=== PATIENT | female | born 2000 | race Two or more races ===

== ENCOUNTER 2022-07-27 00:02 | Inpatient (IN) | payer BC, OTHER ==
[2022-07-27] MEDS ORDERED: IPRATROPIUM/ALBUTEROL 3 ML NEB INH STA (00:16)
[2022-07-27] MEDS ORDERED: ALBUTEROL NEB 2.5 MG/3 ML INH STA ×3 (00:16→05:40)
[2022-07-27] MEDS ORDERED: ALBUTEROL NEB 2.5 MG/3 ML INH ONE (00:29)
--- NOTE | 2022-07-27 00:34 | ED Physician Documentation ---
PD HPI DYSPNEA - Stated complaint Stated Complaint: ASTHMA ATTACK - Chief complaint Chief Complaint: Resp - History obtained from History obtained from: Patient - History of Present Illness Timing - onset: How many days ago (3-4) Timing - details: Gradual onset, Waxing and waning Improved by: Inhaler/neb, Rest Worsened by: Exertion Associated symptoms: Cough, Wheezing, Chest pain / discomfort. No: Fever, Hemoptysis, Palpitations, Diaphoresis, Bilateral edema, Unilateral edema Similar symptoms before: Diagnosis (asthma) Recently seen: Not recently seen - Additional information Additional information: c/o 3-4 days of chest tightness, dyspnea, wheezing, dry cough; symptoms are c/w her asthma (per patient). She was T+R from another ED 07/25/22 for same symptoms [facility] in [place], [place]), given several neb treatments as well as solu-medrol and IV magnesium with adequate improvement for discharge. She presents to [facility] ED at this time due to worsening of the symptoms.She is COVID vaccinated. Denies fever. She is only able to speak in 1-2 word (abbreviated) sentences during HPI/ROS, with friend answering many questions due to patient's dyspnea. Had airplane flight from [place] approximately 1 month ago. Has not noticed any leg swelling Review of Systems Constitutional: denies: Fever, Chills, Sweats Throat: reports: Reviewed and negative Cardiac: reports: Chest pain / pressure (tightness). denies: Palpitations, Pedal edema, Calf pain Respiratory: reports: Dyspnea, Cough, Wheezing. denies: Hemoptysis GI: reports: Reviewed and negative : denies: Now EGA Musculoskeletal: reports: Reviewed and negative PD PAST MEDICAL HISTORY - Past Medical History Past Medical History: Yes Respiratory: Asthma - Present Medications Home Medications: Ambulatory Orders Medication Instructions Recorded Confirmed Albuterol Sulfate [Proair Hfa 1 - 2 puffs INH PRN PRN 07/27/22 07/27/22 Inhaler] Tiotropium [place] [Spiriva] 1 puffs INH DAILY 07/27/22 07/27/22 predniSONE [Prednisone] 20 mg PO DAILY 07/27/22 07/27/22 - Allergies Allergies/Adverse Reactions: Allergies Allergy/AdvReac Type Severity Reaction Status Date / Time egg AdvReac Anaphylaxis Verified 07/27/22 00:56 PD ED PE NORMAL - Vitals Vital signs reviewed: Yes - General General: Alert and oriented X 3, Well developed/nourished, Other (obvious respiratory distress, using accessory muscles and tachypneic) - HEENT HEENT: Moist mucous membranes - Neck Neck: Supple, no meningeal sign - Cardiac Cardiac: No murmur - Derm Derm: Normal color, Warm and dry - Extremities Extremities: No edema PD ED PE EXPANDED - Cardiac Cardiac: Tachy, Regular Rhythm - Respiratory Respiratory: Distress, Accessory mm use, Wheezing, Decreased breath sounds (nearly absent breath sounds , but subsequent to first breathing treatment there are diffuse inspiratory/expiratory wheezes) Results - Vitals Vitals: Vital Signs - 24 hr 07/27/22 07/27/22 07/27/22 00:10 00:50 01:14 Temperature 37.1 C Heart Rate 149 H 129 H 129 H Respiratory 24 38 H Rate Blood Pressure 130/109 H 143/85 H O2 Saturation 91 L 100 07/27/22 07/27/22 07/27/22 01:32 01:38 02:16 Temperature Heart Rate 140 H 128 H 113 H Respiratory 38 H 24 19 Rate Blood Pressure 116/68 O2 Saturation 100 99 07/27/22 07/27/22 07/27/22 03:05 04:05 05:05 Temperature Heart Rate 115 H 116 H 99 Respiratory 20 20 17 Rate Blood Pressure 100/68 108/73 O2 Saturation 100 99 07/27/22 07/27/22 07/27/22 05:10 06:04 06:20 Temperature Heart Rate 95 99 96 Respiratory 17 18 20 Rate Blood Pressure 108/73 O2 Saturation 99 100 07/27/22 07/27/22 07:00 07:43 Temperature Heart Rate 122 H 111 H Respiratory 18 16 Rate Blood Pressure 108/75 O2 Saturation 96 88 L Oxygen O2 Source Room air - Labs Labs: Laboratory Tests 07/27/22 07/27/22 00:57 00:57 WBC 16.2 H RBC 5.15 Hgb 15.7 Hct 44.5 MCV 86.4 MCH 30.5 MCHC 35.3 RDW 11.9 L Plt Count 209 MPV 9.6 Neut # (Auto) 14.3 H Lymph # (Auto) 0.8 L Screven # (Auto) 1.1 H Eos # (Auto) 0.0 Baso # (Auto) 0.0 Absolute Nucleated RBC 0.00 Nucleated RBC % 0.0 Sodium 138 Potassium 4.0 Chloride 103 Carbon Dioxide 23 Anion Gap 12.0 BUN 20 Creatinine 0.7 Estimated GFR (MDRD) 107 Glucose 130 H Calcium 9.3 - Rads (name of study) chest xray Radiology: Prelim report reviewed, See rad report PD MEDICAL DECISION MAKING - ED course Complexity details: reviewed old records (requested records from [facility] ED visit, received and reviewed by me), reviewed results, re-evaluated patient, considered differential, d/w patient ED course: Given duoneb followed by two albuterol nebs , and later in stay a third albuterol neb (total of four nebs). She is also given 2grams magnesium sulfate IV early in stay along with 125mg IV solu-medrol and started on bipap. She improved significantly with these measures, particularly the bipap. However, she continued to require 2-3 liters/min supplemental oxygen due to hypoxia (drops to 88% room air reliably when oxygen removed). She is tachycardic throughout most of ED stay, 100s-110s, even when asleep. This is likely due to the neb treatments, but given recent airplane flight and c/o chest pain, a CTA chest was undertaken; this does not show any PE, but reveals ground-glass opacities bilaterally. Due to ongoing hypoxia (below 90% pulse ox on room air), will admit for further observation and treatment Departure - Departure Disposition: ED Place in Observation Clinical Impression: Asthma Qualifiers: Asthma severity: moderate Asthma persistence: unspecified Asthma complication type: with acute exacerbation Qualified Code(s): J45.901 - Unspecified asthma with (acute) exacerbation Condition: Stable
[2022-07-27] MEDS ORDERED: MAGNESIUM SULFATE 2 GRAM 2 GM/50 ML BAG IV STA (00:42)
[2022-07-27] MEDS ORDERED: SODIUM CHLORIDE 0.9% 1,000 ML IV STA (00:50)
[2022-07-27 01:03] LABS: BASOPHILS % (AUTO) 0.1 %; HCT - HEMATOCRIT 44.5 % (37.0-47.0); HGB - HEMOGLOBIN 15.7 g/dL (12.0-16.0); LYMPHOCYTES # (AUTO) 0.8 10^3/uL (1.5-3.5); LYMPHOCYTES % (AUTO) 4.8 %; MEAN CORPUSCULAR HEMOGLOBIN 30.5 pg (27.0-31.0); MEAN CORPUSCULAR HGB CONC 35.3 g/dL (32.0-36.0); MEAN CORPUSCULAR VOLUME 86.4 fL (81.0-99.0); MEAN PLATELET VOLUME 9.6 fL (7.9-10.8); MONOCYTES # (AUTO) 1.1 10^3/uL (0.0-1.0); MONOCYTES % (AUTO) 6.5 %; NEUTROPHILS # (AUTO) 14.3 10^3/uL (1.5-6.6); NEUTROPHILS % (AUTO) 88.2 %; PLT - PLATELET COUNT 209 10^3/uL (130-450); RED BLOOD COUNT 5.15 10^6/uL (4.20-5.40); RED CELL DISTRIBUTION WIDTH 11.9 % (12.0-15.0); WHITE BLOOD COUNT 16.2 x10^3/uL (4.8-10.8)
[2022-07-27 01:13] LABS: CALCIUM 9.3 mg/dL (8.5-10.3); CREATININE 0.7 mg/dL (0.4-1.0)
[2022-07-27] MEDS ORDERED: methylPREDNISolone SUCCINATE 125 MG/2 ML VIAL IVP STA (02:10)
--- NOTE | 2022-07-27 07:28 | XRAY Report ---
PROCEDURE: Chest 2 View X-Ray INDICATIONS: cough, dyspnea TECHNIQUE: 2 view(s) of the chest. COMPARISON: None. FINDINGS: Surgical changes and devices: None. Lungs and pleura: No pleural effusions or pneumothorax. Lungs are clear. Mediastinum: Mediastinal contours are normal. Heart size is normal. Bones and chest wall: No suspicious bony abnormalities. Soft tissues appear unremarkable. IMPRESSION: No acute pulmonary process. Reviewed by: Rufina Salmeron MD on 07/27/2022 7:27 AM PDT Approved by: Rufina Salmeron MD on 07/27/2022 7:27 AM PDT Station ID: [id number]
--- NOTE | 2022-07-27 08:14 | CT Report ---
PROCEDURE: ANGIO CHEST W/WO INDICATIONS: chest pain, dyspnea, tachycardia CONTRAST: IV CONTRAST: Optiray 320 ml: 80 PO CONTRAST: *NO PO CONTRAST TECHNIQUE: After the administration of intravenous contrast, 2 mm axial images were acquired from the pulmonary apices to the posterior costophrenic angles during the arterial phase. In addition, 1 mm lung kernel and 5 mm soft tissue kernel reconstructions were performed. 3-dimensional coronal oblique maximum int ensity projection (MIP) reformats, 8 mm axial MIP, and 5 mm coronal and sagittal MPR reformats were t hen performed through the thorax. For radiation dose reduction, the following was used: automated exp osure control, adjustment of mA and/or kV according to patient size. COMPARISON: Chest x-ray 07/27/2022 FINDINGS: Image quality: Excellent. Pulmonary arteries: Pulmonary arteries are normal in size, and demonstrate no intraluminal filling d efects to suggest central pulmonary embolism. Lungs and pleura: Patchy areas of groundglass like opacity are identified in the anterior aspect of t he upper lobes. No pleural effusions or pneumothorax. Central and peripheral airways are patent. Mediastinum: Heart size is normal, without pericardial effusion. No mediastinal or hilar adenopathy . Thoracic aorta is normal in caliber and enhancement. Esophagus is normal in caliber, without hiat al hernia. Bones and chest wall: No suspicious bony lesions. Ribs and thoracic spine appear intact throughout. No axillary or supraclavicular adenopathy. The thyroid is normal in size and there are no incident al findings. Abdomen: Visualized upper abdominal solid organs appear normal in the early arterial phase of enhanc ement. IMPRESSION: No pulmonary embolism. Groundglass opacities within the upper lobes suggestive of infection or inflammation. The above findings are concordant with preliminary report. CLINICAL RECOMMENDATION STATEMENTS: In patients <35 years with an ITN detected on CT, MRI, or extrathyroidal ultrasound, the Committee re commends further evaluation with dedicated thyroid ultrasound if the nodule is "e1 cm and has no susp icious imaging features, and if the patient has normal life expectancy. In patients "e35 years with an ITN detected on CT, MRI, or extrathyroidal ultrasound, the Committee r ecommends further evaluation with dedicated thyroid ultrasound if the nodule is "e1.5 cm and has no s uspicious imaging features, and if the patient has normal life expectancy. (ACR, 2014) Reviewed by: Rufina Salmeron MD on 07/27/2022 8:13 AM PDT Approved by: Rufina Salmeron MD on 07/27/2022 8:13 AM PDT Station ID: [id number]
[2022-07-27 08:56] LABS: B. PARAPERTUSSIS- RESP PCR PAN NOT DETECTED; B. PERTUSSIS- RESP PCR PANEL NOT DETECTED; C. PNEUMONIAE- RESP PCR PANEL NOT DETECTED; CORONAVIRUS 229E-RESP PCR NOT DETECTED; CORONAVIRUS HKU1-RESP PCR NOT DETECTED; CORONAVIRUS NL63-RESP PCR NOT DETECTED; CORONAVIRUS OC43-RESP PCR NOT DETECTED; HUMAN METAPNEUMOVIRUS NOT DETECTED; INFLUENZA A- RESP PCR PANEL NOT DETECTED; INFLUENZA B - RESP PCR PANEL NOT DETECTED; M. PNEUMONIAE- RESP PCR PANEL NOT DETECTED; PARAINFLUENZA VIRUS 1 NOT DETECTED; PARAINFLUENZA VIRUS 2 NOT DETECTED; PARAINFLUENZA VIRUS 3 NOT DETECTED; PARAINFLUENZA VIRUS 4 NOT DETECTED; RHINOVIRUS/ENTEROVIRUS NOT DETECTED; RSV- RESP PCR PANEL NOT DETECTED; SARS-CoV-2 -RESP PCR PANEL NOT DETECTED
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
[2022-07-27] MEDS: IPRATROPIUM/ALBUTEROL 3 ML NEB INH SCH ×3 (11:14→20:29)
[2022-07-27] MEDS: BUDESONIDE 0.5 MG/2 ML NEB INH SCH ×2 (11:14→20:29)
[2022-07-27] MEDS: methylPREDNISolone SUCCINATE 40 MG/ML VIAL IVP SCH ×2 (14:10→22:05)
[2022-07-27] MEDS: SODIUM CHLORIDE FLUSH 0.9% 10 ML SYRINGE IVP PRN (14:10)
--- NOTE | 2022-07-27 14:28 | PHARMACY PROGRESS NOTE ---
- Best Possible Medication History Admit Date and Time: 07/27/22 0910 Processed by: Pharmacy Medication History completed: Yes Patient Interview: Completed Secondary Source(s): Prescription bottles (INTERVIEWED PATIENT AND FRIEND; PT REPORTED TAKING ALBUTEROL INHALER AND NEBULIZER SIGNIFICANTLY MORE THAN PRESCRIBED (SEE ADDENDUM)) As the person ultimately responsible for medication therapy, providers are able to order a medication from an existing home medication list in [facility] via the "Reconcile Routine" prior to Confirmation of that medication by shipping support. Such practice is discouraged except when the physician, in their clinical j udgment, deems that a medical need exists for a medication without regard to previous use.
[2022-07-27] MEDS: SODIUM CHLORIDE FLUSH 0.9% 10 ML SYRINGE IVP SCH (17:21)
[2022-07-27] MEDS: cefTRIAXone 1 GM in SODIUM CHLORIDE 0.9% MINIBAG 100 ML IV SCH (18:44)
[2022-07-27] MEDS: AZITHROMYCIN INJ 500 MG in SODIUM CHLORIDE 0.9% 250 ML IV SCH (19:28)
[2022-07-27] MEDS: guaiFENesin 600 MG TABLET PO SCH (22:05)
[2022-07-27] MEDS: ONDANSETRON 4 MG/2 ML VIAL IVP PRN (22:05)
[2022-07-28] MEDS: SODIUM CHLORIDE FLUSH 0.9% 10 ML SYRINGE IVP SCH ×3 (01:03→17:46)
[2022-07-28] MEDS: IPRATROPIUM/ALBUTEROL 3 ML NEB INH PRN ×2 (01:20→05:13)
[2022-07-28 04:54] LABS: BASOPHILS % (AUTO) 0.1 %; HCT - HEMATOCRIT 43.1 % (37.0-47.0); HGB - HEMOGLOBIN 14.8 g/dL (12.0-16.0); LYMPHOCYTES # (AUTO) 0.7 10^3/uL (1.5-3.5); LYMPHOCYTES % (AUTO) 6.5 %; MEAN CORPUSCULAR HEMOGLOBIN 30.3 pg (27.0-31.0); MEAN CORPUSCULAR HGB CONC 34.3 g/dL (32.0-36.0); MEAN CORPUSCULAR VOLUME 88.3 fL (81.0-99.0); MEAN PLATELET VOLUME 9.8 fL (7.9-10.8); MONOCYTES # (AUTO) 0.5 10^3/uL (0.0-1.0); MONOCYTES % (AUTO) 4.5 %; NEUTROPHILS % (AUTO) 88.5 %; PLT - PLATELET COUNT 203 10^3/uL (130-450); RED BLOOD COUNT 4.88 10^6/uL (4.20-5.40); RED CELL DISTRIBUTION WIDTH 11.9 % (12.0-15.0); WHITE BLOOD COUNT 11.2 x10^3/uL (4.8-10.8)
[2022-07-28 05:07] LABS: CREATININE 0.6 mg/dL (0.4-1.0); MAGNESIUM 2.3 mg/dL (1.7-2.8); PHOSPHORUS 4.3 mg/dL (2.5-4.6); POTASSIUM 4.2 mmol/L (3.5-5.0)
[2022-07-28] MEDS: methylPREDNISolone SUCCINATE 40 MG/ML VIAL IVP SCH ×5 (08:15→21:22)
[2022-07-28] MEDS: SODIUM CHLORIDE FLUSH 0.9% 10 ML SYRINGE IVP PRN (08:19)
[2022-07-28] MEDS: cefTRIAXone 1 GM in SODIUM CHLORIDE 0.9% MINIBAG 100 ML IV SCH (08:23)
[2022-07-28] MEDS: guaiFENesin 600 MG TABLET PO SCH ×2 (08:24→20:21)
[2022-07-28] MEDS: BUDESONIDE 0.5 MG/2 ML NEB INH SCH ×2 (08:47→18:11)
[2022-07-28] MEDS: IPRATROPIUM/ALBUTEROL 3 ML NEB INH SCH ×4 (08:47→18:11)
[2022-07-28] MEDS: AZITHROMYCIN INJ 500 MG in SODIUM CHLORIDE 0.9% 250 ML IV SCH (09:35)
--- NOTE | 2022-07-28 10:42 | PROVIDER PROGRESS NOTE ---
Assessment/Plan - Problem List (1) Acute respiratory failure with hypoxia Assessment/Plan: She has desats when transitioned to try being on room air. Will admit her to Inpt status and continue treat her Asthma exacerbation, the underlying cause of the hypoxia. Will continue with supplemental O2, keeping O2 saturations 90 to 92% minimal. Wean down supplemental O2 when tolerated (2) Asthma exacerbation Assessment/Plan: She was SOB just using arms to brush her teeth in bed this morning. She still need suppl O2 via n.c. We started scheduled nebulizers 4 times daily and as needed nebs ordered every 4 hours prn, using DuoNeb. Will also started Pulmicort nebulizer twice daily. She is on IV steroids using Solu-Medrol 80 mg 3 times daily. Will consider a rapid taper starting 40 mg 3 times daily tomorrow and a Medrol Dosepak at the time of discharge. The patient will need further management with a new PCP since she has just moved here. And she will probably benefit from being followed by a Solar Energy System Installer Helper. It would benefit if she was tested for alpha 1 antitrypsin deficiency given her severe lung history since childhood, which would need outpt work-up. (3) Bronchitis Assessment/Plan: Evidence of inflammation of the lung apeces is seen on CT chest, which was done to R/O PE, which was ruled out. COVID test is negative and she has no infiltrate seen on chest x-ray or CT chest. Since she was describing a wet cough, a sputum sample was obtained and has moderate WBC, no epithelial cells (thus, a good specimen) and has bacteria. Await sputum cx results. We started empiric Zithromax and Ceftiaxone. Will add a probiotic Will add Mucinex for expectoration (4) Epigastric pain Assessment/Plan: Patient reports this is slightly with nausea and feels like she needs to burp. The [id number], who stayed overnight and is in the room, states she suspects it is from finally eating food (today the pt had sausages, oatmeal and some liquids), since the pt has "not been eating at all in the past 3 days from being so short of breath". The patient reports she had this last night after dinner and got IV antiemetics before sleep and it helped her symptoms. Her abdominal exam is completely benign. There is no muscle wall tenderness or pain with sitting forward. Will give prn Mylanta and continue as needed antiemetics. - Current Meds Current Meds: Current Medications Generic Name Dose Route Start Last Admin Trade Name Tu PRN Reason Stop Dose Admin Albuterol/Ipratropium 3 ml 07/27/22 09:15 07/28/22 05:13 Ipratropium/Albuterol 3 Ml Neb INH 3 ml Q4HR PRN Administration Wheezing Albuterol/Ipratropium 3 ml 07/27/22 11:00 07/28/22 08:47 Ipratropium/Albuterol 3 Ml Neb INH 3 ml RTQID FENG Administration Budesonide 0.5 mg 07/27/22 09:15 07/28/22 08:47 Budesonide 0.5 Mg/2 Ml Neb INH 0.5 mg RTBID FENG Administration Guaifenesin 600 mg 07/27/22 21:00 07/28/22 08:24 Guaifenesin 600 Mg Tablet PO 600 mg BID FENG Administration Azithromycin 500 mg/ Sodium 250 mls @ 250 mls/hr 07/27/22 18:03 07/28/22 09:35 Chloride IV 07/30/22 00:01 250 mls/hr DAILY FENG Administration Ceftriaxone Sodium 1 gm/ 100 mls @ 200 mls/hr 07/27/22 18:03 07/28/22 08:23 Sodium Chloride IV 200 mls/hr DAILY FENG Administration Methylprednisolone 80 mg 07/27/22 14:00 07/28/22 08:15 Methylprednisolone Succinate 40 Mg/Ml Vial IVP 07/28/22 22:30 80 mg TID FENG Administration Ondansetron HCl 4 mg 07/27/22 09:10 07/27/22 22:05 Ondansetron 4 Mg/2 Ml Vial IVP 4 mg Q6HR PRN Administration Nausea / Vomiting Sodium Chloride 10 ml 07/27/22 09:10 07/28/22 08:19 Sodium Chloride Flush 0.9% 10 Ml Syringe IVP 10 ml PRN PRN Administration NEEDED PER PROVIDER ORDERS Sodium Chloride 10 ml 07/27/22 17:00 07/28/22 01:15 Sodium Chloride Flush 0.9% 10 Ml Syringe IVP 10 ml 0100,0900,1700 FENG Administration - Lab Result Fish Bone Diagrams: 07/28/22 04:40 07/28/22 04:40 - Additional Planning My Orders: My Active Orders 07/27/22 11:00 Ipratropium/Albuterol [Duoneb] 3 ml INH RTQID 07/27/22 Lunch Regular Diet [DIET] 07/27/22 11:17 Nebulizer [Nebulizer/MDI Tx.] [RC] .qid 07/27/22 14:00 methylPREDNISolone SUCCINATE [SOLU-Medrol (40MG VIAL)] 80 mg IVP TID 07/27/22 16:20 CUL, RESPIRATORY [RM] Stat 07/27/22 17:00 Sodium Chloride Flush 0.9% [Normal Saline Flush 0.9%] 10 ml IVP 0100,0900,1700 07/27/22 18:03 Azithromycin Inj [Zithromax Inj] 500 mg Sodium Chloride 0.9% [Normal Saline 0.9%] 250 ml IV DAILY cefTRIAXone [Rocephin] 1 gm Sodium Chloride 0.9% Minibag [Normal Saline 0.9% Minibag] 100 ml IV DAILY 07/27/22 21:00 guaiFENesin [Mucinex] 600 mg PO BID 07/28/22 10:36 Admit \\ Transfer \\ Status [RC] .ONCE 07/28/22 10:37 Telemetry- [] Q4HR 07/29/22 05:00 BMP - BASIC METABOLIC PANEL [CHEM] DAILYLAB CBC - COMP BLD CT W/AUTO DIFF [HEME] DAILYLAB 07/29/22 06:00 methylPREDNISolone SUCCINATE [SOLU-Medrol (40MG VIAL)] 40 mg IVP TID 07/30/22 05:00 BMP - BASIC METABOLIC PANEL [CHEM] DAILYLAB CBC - COMP BLD CT W/AUTO DIFF [HEME] DAILYLAB Subjective - Subjective Patient Reports: Abdominal Pain, Nausea Nursing Reports: Shortness of Breath Objective Vital Signs: Vital Signs - 24 hr 07/27/22 07/27/22 07/27/22 10:53 11:18 13:26 Temperature 36.9 C 36.8 C Heart Rate 90 Heart Rate [ 117 H 106 H Brachial] Respiratory 20 20 18 Rate Blood Pressure 122/60 107/63 [Left Brachial artery] Blood Pressure [Right Brachial artery] O2 Saturation 98 94 07/27/22 07/27/22 07/27/22 13:31 14:08 15:53 Temperature 37.0 C Heart Rate Heart Rate [ 113 H Brachial] Respiratory 21 24 Rate Blood Pressure [Left Brachial artery] Blood Pressure 117/60 [Right Brachial artery] O2 Saturation 93 93 93 07/27/22 07/27/22 07/28/22 16:00 20:30 01:05 Temperature 36.7 C 37.1 C Heart Rate 80 110 H Heart Rate [ 113 H 92 Brachial] Respiratory 18 20 19 Rate Blood Pressure 121/75 91/64 [Left Brachial artery] Blood Pressure [Right Brachial artery] O2 Saturation 93 94 07/28/22 07/28/22 07/28/22 03:26 04:40 07:55 Temperature 36.5 C 36.4 C L Heart Rate Heart Rate [ 110 H 103 H Brachial] Respiratory 17 20 20 Rate Blood Pressure [Left Brachial artery] Blood Pressure 121/63 119/58 L [Right Brachial artery] O2 Saturation 96 94 94 07/28/22 08:51 Temperature Heart Rate 79 Heart Rate [ Brachial] Respiratory 20 Rate Blood Pressure [Left Brachial artery] Blood Pressure [Right Brachial artery] O2 Saturation Oxygen O2 Source Nasal cannula I&O (Last 24 Hrs): Intake and Output Totals x24h 07/26/22 07/27/22 07/28/22 23:59 23:59 23:59 Intake Total 2300 100 Balance 2300 100 General: Alert, Other (Lethargic, awakens and communicates normally) HEENT: Mucous membr. moist/pink Neck: Supple, No JVD Neuro: Alert, Non Focal Cardiovascular: Regular rate, No murmurs Respiratory: Wheezes (throughout all lung mcghee) Abdomen: Normal bowel sounds, Soft, No tenderness, No masses Extremities: No clubbing, No edema - Results Results: Laboratory Results WBC 11.2 x10^3/uL (4.8-10.8) H 07/28/22 04:40 RBC 4.88 10^6/uL (4.20-5.40) 07/28/22 04:40 Hgb 14.8 g/dL (12.0-16.0) 07/28/22 04:40 Hct 43.1 % (37.0-47.0) 07/28/22 04:40 MCV 88.3 fL (81.0-99.0) 07/28/22 04:40 MCH 30.3 pg (27.0-31.0) 07/28/22 04:40 MCHC 34.3 g/dL (32.0-36.0) 07/28/22 04:40 RDW 11.9 % (12.0-15.0) L 07/28/22 04:40 Plt Count 203 10^3/uL (130-450) 07/28/22 04:40 MPV 9.8 fL (7.9-10.8) 07/28/22 04:40 Neut # (Auto) 10.0 10^3/uL (1.5-6.6) H 07/28/22 04:40 Lymph # (Auto) 0.7 10^3/uL (1.5-3.5) L 07/28/22 04:40 [place] # (Auto) 0.5 10^3/uL (0.0-1.0) 07/28/22 04:40 Eos # (Auto) 0.0 10^3/uL (0.0-0.7) 07/28/22 04:40 Baso # (Auto) 0.0 10^3/uL (0.0-0.1) 07/28/22 04:40 Absolute Nucleated RBC 0.00 x10^3/uL 07/28/22 04:40 Nucleated RBC % 0.0 /100WBC 07/28/22 04:40 Sodium 135 mmol/L (135-145) 07/28/22 04:40 Potassium 4.2 mmol/L (3.5-5.0) 07/28/22 04:40 Chloride 104 mmol/L (101-111) 07/28/22 04:40 Carbon Dioxide 26 mmol/L (21-32) 07/28/22 04:40 Anion Gap 5.0 (6-13) L 07/28/22 04:40 BUN 18 mg/dL (6-20) 07/28/22 04:40 Creatinine 0.6 mg/dL (0.4-1.0) 07/28/22 04:40 Estimated GFR (MDRD) 127 (>89) 07/28/22 04:40 Glucose 145 mg/dL (70-100) H 07/28/22 04:40 Calcium 9.0 mg/dL (8.5-10.3) 07/28/22 04:40 Phosphorus 4.3 mg/dL (2.5-4.6) 07/28/22 04:40 Magnesium 2.3 mg/dL (1.7-2.8) 07/28/22 04:40 Nasal Adenovirus (PCR) NOT DETECTED 07/27/22 07:57 Nasal B. parapertussis DNA (PCR) NOT DETECTED 07/27/22 07:57 Nasal Coronavir 229E PCR NOT DETECTED 07/27/22 07:57 Nasal Coronavir HKU1 PCR NOT DETECTED 07/27/22 07:57 Nasal Coronavir NL63 PCR NOT DETECTED 07/27/22 07:57 Nasal Coronavir OC43 PCR NOT DETECTED 07/27/22 07:57 Nasal Enterovir/Rhinovir PCR NOT DETECTED 07/27/22 07:57 Nasal Influenza B PCR NOT DETECTED 07/27/22 07:57 Nasal Influenza A PCR NOT DETECTED 07/27/22 07:57 Nasal Parainfluen 1 PCR NOT DETECTED 07/27/22 07:57 Nasal Parainfluen 2 PCR NOT DETECTED 07/27/22 07:57 Nasal Parainfluen 3 PCR NOT DETECTED 07/27/22 07:57 Nasal Parainfluen 4 PCR NOT DETECTED 07/27/22 07:57 Nasal RSV (PCR) NOT DETECTED 07/27/22 07:57 Nasal B.pertussis DNA PCR NOT DETECTED 07/27/22 07:57 Nasal C.pneumoniae (PCR) NOT DETECTED 07/27/22 07:57 Joe Human Metapneumo PCR NOT DETECTED 07/27/22 07:57 Nasal M.pneumoniae (PCR) NOT DETECTED 07/27/22 07:57 Nasal SARS-CoV-2 (PCR) NOT DETECTED 07/27/22 07:57
[2022-07-28] MEDS: ONDANSETRON 4 MG/2 ML VIAL IVP PRN (11:05)
[2022-07-28] MEDS: ACETAMINOPHEN 325 MG TABLET PO PRN ×2 (15:46→20:21)
[2022-07-28] MEDS: SACCHAROMYCES BOULARDII 250 MG CAPSULE PO SCH (17:46)
[2022-07-29 05:03] LABS: HCT - HEMATOCRIT 42.8 % (37.0-47.0); HGB - HEMOGLOBIN 14.8 g/dL (12.0-16.0); LYMPHOCYTES # (AUTO) 0.7 10^3/uL (1.5-3.5); LYMPHOCYTES % (AUTO) 9.5 %; MEAN CORPUSCULAR HEMOGLOBIN 30.6 pg (27.0-31.0); MEAN CORPUSCULAR HGB CONC 34.6 g/dL (32.0-36.0); MEAN CORPUSCULAR VOLUME 88.6 fL (81.0-99.0); MEAN PLATELET VOLUME 9.4 fL (7.9-10.8); MONOCYTES # (AUTO) 0.3 10^3/uL (0.0-1.0); MONOCYTES % (AUTO) 4.7 %; NEUTROPHILS % (AUTO) 85.5 %; PLT - PLATELET COUNT 204 10^3/uL (130-450); RED BLOOD COUNT 4.83 10^6/uL (4.20-5.40); RED CELL DISTRIBUTION WIDTH 11.7 % (12.0-15.0); WHITE BLOOD COUNT 7.1 x10^3/uL (4.8-10.8)
[2022-07-29 05:18] LABS: CALCIUM 9.5 mg/dL (8.5-10.3); CREATININE 0.7 mg/dL (0.4-1.0); POTASSIUM 4.3 mmol/L (3.5-5.0)
[2022-07-29] MEDS: ACETAMINOPHEN 325 MG TABLET PO PRN ×2 (05:51→11:39)
[2022-07-29] MEDS: SODIUM CHLORIDE FLUSH 0.9% 10 ML SYRINGE IVP SCH ×3 (05:52→15:57)
[2022-07-29] MEDS: methylPREDNISolone SUCCINATE 40 MG/ML VIAL IVP SCH ×3 (05:52→21:00)
[2022-07-29] MEDS: IPRATROPIUM/ALBUTEROL 3 ML NEB INH SCH (07:26)
[2022-07-29] MEDS: BUDESONIDE 0.5 MG/2 ML NEB INH SCH ×2 (07:26→20:50)
[2022-07-29] MEDS: guaiFENesin 600 MG TABLET PO SCH ×2 (08:12→21:00)
[2022-07-29] MEDS: SACCHAROMYCES BOULARDII 250 MG CAPSULE PO SCH ×2 (08:12→16:01)
[2022-07-29] MEDS: cefTRIAXone 1 GM in SODIUM CHLORIDE 0.9% MINIBAG 100 ML IV SCH (08:12)
[2022-07-29] MEDS: AZITHROMYCIN INJ 500 MG in SODIUM CHLORIDE 0.9% 250 ML IV SCH (09:27)
[2022-07-29] MEDS ORDERED: SODIUM CHLORIDE 0.9% 500 ML IV ONE (10:18)
[2022-07-29 11:35] LABS: HCG,QUALITATIVE BLOOD NEGATIVE
[2022-07-29] MEDS: MAG HYDROX/AL HYDROX/SIMETH 30 ML UDC PO PRN ×2 (11:40→22:25)
[2022-07-29] MEDS: IPRATROPIUM/ALBUTEROL 3 ML NEB INH PRN (11:46)
[2022-07-29] MEDS ORDERED: SODIUM CHLORIDE 0.9% 1,000 ML IV SCH (12:00)
--- NOTE | 2022-07-29 13:01 | PROVIDER PROGRESS NOTE ---
Assessment/Plan - Problem List (1) Acute respiratory failure with hypoxia Assessment/Plan: She still has desats when transitioned to try being on room air. Will continue treat her Asthma exacerbation, the underlying cause of the hypoxia. Will continue with supplemental O2, keeping O2 saturations 90 to 92% minimal. Wean down supplemental O2 when tolerated. She may require home O2 order. A walking oximetry test would be done on the day of discharge (2) Asthma exacerbation Assessment/Plan: She was able to take a shower, but was SOB and still needing suppl O2 via n.c. We started scheduled nebulizers 4 times daily and as needed nebs ordered every 4 hours prn Will also started Pulmicort nebulizer twice daily. She is on IV steroids using Solu-Medrol 80 mg iv 3 times daily>> 40 mg iv 3 times daily and a Medrol Dosepak is planned at the time of discharge. The patient will need further management with a new PCP since she has just moved here. And she will probably benefit from being followed by a Wave Guide Assembler. It would benefit if she was tested for alpha 1 antitrypsin deficiency, given her severe lung history since childhood, which would need outpt work-up. This was discussed with the patient today, with the brother and [id number] were in the room. 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 This was also discussed with the patient and she became tearful. (3) Bronchitis Assessment/Plan: Evidence of inflammation of the lung apeces is seen on CT chest, which was done to R/O PE, which was ruled out. COVID test is negative and she has no infiltrate seen on chest x-ray or CT chest. Since she was describing a wet cough, a sputum sample was obtained and has moderate WBC, no epithelial cells (thus, a good specimen) and is growing a gram- pos bacteria. Await sputum cx results. We started empiric Zithromax and Ceftiaxone and a probiotic plus Mucinex for expectoration. She is requesting a multivitamin, will order. Will also check a vitamin D level before prescribing a vitamin D replacement. (4) Tachycardia Assessment/Plan: She has had multiple episodes of HR rising to 130-140's over the last 2 days, when she coughs or after a Duoneb treatment. Will change the scheduled qid Duoneb to Xopenex Will give a bolus of saline 500cc, since her intake has been minimal and she may be dry Will give 1L of saline over a day. Continue telemetry. (5) Epigastric pain Assessment/Plan: Her abdominal exam is benign. There is no muscle wall tenderness or pain with sitting forward. There is no tenderness to deep palpation. The patient admitted to her RN that she had unprotected sex about a month ago and today she is 2 days late with her period. A serum hCG was run today and is negative. Patient reports this is slightly with nausea and feels like she needs to burrp. She got IV antiemetics x2 and it helped her symptoms. She also has prn meds for indigestion ordered. I suspect this may be discomfort from constipation, because she has had no BM since admission. - Current Meds Current Meds: Current Medications Generic Name Dose Route Start Last Admin Trade Name Tu PRN Reason Stop Dose Admin Acetaminophen 650 mg 07/27/22 09:10 07/29/22 11:39 Acetaminophen 325 Mg Tablet PO 650 mg Q4HR PRN Administration Pain 1 to 4, or Fever Al Hydroxide/Mg Hydroxide 30 ml 07/28/22 10:48 07/29/22 11:40 Mag Hydrox/Al Hydrox/Simeth 30 Ml Udc PO 30 ml Q4HR PRN Administration INDIGESTION Albuterol/Ipratropium 3 ml 07/27/22 09:15 07/29/22 11:46 Ipratropium/Albuterol 3 Ml Neb INH 3 ml Q4HR PRN Administration Wheezing Budesonide 0.5 mg 07/27/22 09:15 07/29/22 07:26 Budesonide 0.5 Mg/2 Ml Neb INH 0.5 mg RTBID FENG Administration Guaifenesin 600 mg 07/27/22 21:00 07/29/22 08:12 Guaifenesin 600 Mg Tablet PO 600 mg BID FENG Administration Azithromycin 500 mg/ Sodium 250 mls @ 250 mls/hr 07/27/22 18:03 07/29/22 10:40 Chloride IV 07/30/22 00:01 Infused DAILY FENG Infusion Ceftriaxone Sodium 1 gm/ 100 mls @ 200 mls/hr 07/27/22 18:03 07/29/22 08:50 Sodium Chloride IV Infused DAILY FENG Infusion Sodium Chloride 1,000 mls @ 60 mls/hr 07/29/22 12:00 07/29/22 11:35 Normal Saline 0.9% IV 07/30/22 04:39 60 mls/hr .[id number] FENG Administration Methylprednisolone 40 mg 07/29/22 06:00 07/29/22 05:52 Methylprednisolone Succinate 40 Mg/Ml Vial IVP 40 mg TID FENG Administration Ondansetron HCl 4 mg 07/27/22 09:10 07/28/22 11:05 Ondansetron 4 Mg/2 Ml Vial IVP 4 mg Q6HR PRN Administration Nausea / Vomiting Saccharomyces Boulardii 250 mg 07/28/22 17:00 07/29/22 08:12 Saccharomyces Boulardii 250 Mg Capsule PO 250 mg BIDWM FENG Administration Sodium Chloride 10 ml 07/27/22 09:10 07/28/22 08:19 Sodium Chloride Flush 0.9% 10 Ml Syringe IVP 10 ml PRN PRN Administration NEEDED PER PROVIDER ORDERS Sodium Chloride 10 ml 07/27/22 17:00 07/29/22 08:13 Sodium Chloride Flush 0.9% 10 Ml Syringe IVP 10 ml 0100,0900,1700 FENG Administration - Lab Result Fish Bone Diagrams: 07/29/22 04:55 07/29/22 04:55 - Additional Planning My Orders: My Active Orders 07/28/22 17:00 Saccharomyces Boulardii [Florastor] 250 mg PO BIDWM 07/29/22 06:00 methylPREDNISolone SUCCINATE [SOLU-Medrol (40MG VIAL)] 40 mg IVP TID 07/29/22 10:19 Resp Teach Nebulizer/MDI [RC] .ONCE 07/29/22 12:00 Sodium Chloride 0.9% [Normal Saline 0.9%] 1,000 ml IV 60 mls/hr 07/29/22 13:00 Levalbuterol [Xopenex] 1.25 mg INH QID 07/30/22 05:00 BMP - BASIC METABOLIC PANEL [CHEM] DAILYLAB CBC - COMP BLD CT W/AUTO DIFF [HEME] DAILYLAB VITAMIN D 25-HYDROXY [REFLAB] Routine Subjective - Subjective Patient Reports: Other (Able to take a shower yesterday and today, but was SOB. Able to speak in long sentences today.) Objective Vital Signs: Vital Signs - 24 hr 07/28/22 07/28/22 07/28/22 14:16 15:14 15:54 Temperature 36.9 C Heart Rate 89 Heart Rate [ 117 H Brachial] Heart Rate [ Monitoring electrodes] Respiratory 20 20 Rate Blood Pressure [Left Brachial artery] Blood Pressure 103/53 L [Right Brachial artery] O2 Saturation 94 95 07/28/22 07/28/22 07/28/22 18:13 20:06 21:02 Temperature 36.5 C Heart Rate 89 Heart Rate [ 110 H Brachial] Heart Rate [ 98 Monitoring electrodes] Respiratory 19 16 Rate Blood Pressure [Left Brachial artery] Blood Pressure 120/75 [Right Brachial artery] O2 Saturation 95 07/29/22 07/29/22 07/29/22 00:34 05:25 07:18 Temperature 37.1 C 36.7 C 37.3 C Heart Rate Heart Rate [ 104 H 101 H 84 Brachial] Heart Rate [ Monitoring electrodes] Respiratory 18 16 16 Rate Blood Pressure 111/61 119/74 [Left Brachial artery] Blood Pressure 117/69 [Right Brachial artery] O2 Saturation 93 94 93 07/29/22 07/29/22 07/29/22 07:28 09:45 11:48 Temperature Heart Rate 105 H 89 Heart Rate [ Brachial] Heart Rate [ Monitoring electrodes] Respiratory 20 20 18 Rate Blood Pressure [Left Brachial artery] Blood Pressure [Right Brachial artery] O2 Saturation 93 07/29/22 12:48 Temperature 36.8 C Heart Rate Heart Rate [ 92 Brachial] Heart Rate [ Monitoring electrodes] Respiratory 17 Rate Blood Pressure 109/71 [Left Brachial artery] Blood Pressure [Right Brachial artery] O2 Saturation 96 Oxygen O2 Source Nasal cannula I&O (Last 24 Hrs): Intake and Output Totals x24h 07/27/22 07/28/22 07/29/22 23:59 23:59 23:59 Intake Total 2300 1125 1610 Output Total 725 680 Balance 2300 400 930 General: Alert, Oriented x3 HEENT: Mucous membr. moist/pink, Other (wearing O2 per n.c.) Neck: Supple, No JVD Neuro: Alert, Non Focal Cardiovascular: Regular rate, No murmurs Respiratory: Wheezes (Rare wheezing, stioll prolonged expir phase) Abdomen: Normal bowel sounds, Soft, No tenderness, No masses Extremities: No clubbing, No edema - Results Results: Laboratory Results WBC 7.1 x10^3/uL (4.8-10.8) 07/29/22 04:55 RBC 4.83 10^6/uL (4.20-5.40) 07/29/22 04:55 Hgb 14.8 g/dL (12.0-16.0) 07/29/22 04:55 Hct 42.8 % (37.0-47.0) 07/29/22 04:55 MCV 88.6 fL (81.0-99.0) 07/29/22 04:55 MCH 30.6 pg (27.0-31.0) 07/29/22 04:55 MCHC 34.6 g/dL (32.0-36.0) 07/29/22 04:55 RDW 11.7 % (12.0-15.0) L 07/29/22 04:55 Plt Count 204 10^3/uL (130-450) 07/29/22 04:55 MPV 9.4 fL (7.9-10.8) 07/29/22 04:55 Neut # (Auto) 6.0 10^3/uL (1.5-6.6) 07/29/22 04:55 Lymph # (Auto) 0.7 10^3/uL (1.5-3.5) L 07/29/22 04:55 [place] # (Auto) 0.3 10^3/uL (0.0-1.0) 07/29/22 04:55 Eos # (Auto) 0.0 10^3/uL (0.0-0.7) 07/29/22 04:55 Baso # (Auto) 0.0 10^3/uL (0.0-0.1) 07/29/22 04:55 Absolute Nucleated RBC 0.00 x10^3/uL 07/29/22 04:55 Nucleated RBC % 0.0 /100WBC 07/29/22 04:55 Sodium 139 mmol/L (135-145) 07/29/22 04:55 Potassium 4.3 mmol/L (3.5-5.0) 07/29/22 04:55 Chloride 101 mmol/L (101-111) 07/29/22 04:55 Carbon Dioxide 27 mmol/L (21-32) 07/29/22 04:55 Anion Gap 11.0 (6-13) 07/29/22 04:55 BUN 18 mg/dL (6-20) 07/29/22 04:55 Creatinine 0.7 mg/dL (0.4-1.0) 07/29/22 04:55 Estimated GFR (MDRD) 107 (>89) 07/29/22 04:55 Glucose 140 mg/dL (70-100) H 07/29/22 04:55 Calcium 9.5 mg/dL (8.5-10.3) 07/29/22 04:55 Phosphorus 4.3 mg/dL (2.5-4.6) 07/28/22 04:40 Magnesium 2.3 mg/dL (1.7-2.8) 07/28/22 04:40 Serum HCG, Qual NEGATIVE 07/29/22 04:55 Nasal Adenovirus (PCR) NOT DETECTED 07/27/22 07:57 Nasal B. parapertussis DNA (PCR) NOT DETECTED 07/27/22 07:57 Nasal Coronavir 229E PCR NOT DETECTED 07/27/22 07:57 Nasal Coronavir HKU1 PCR NOT DETECTED 07/27/22 07:57 Nasal Coronavir NL63 PCR NOT DETECTED 07/27/22 07:57 Nasal Coronavir OC43 PCR NOT DETECTED 07/27/22 07:57 Nasal Enterovir/Rhinovir PCR NOT DETECTED 07/27/22 07:57 Nasal Influenza B PCR NOT DETECTED 07/27/22 07:57 Nasal Influenza A PCR NOT DETECTED 07/27/22 07:57 Nasal Parainfluen 1 PCR NOT DETECTED 07/27/22 07:57 Nasal Parainfluen 2 PCR NOT DETECTED 07/27/22 07:57 Nasal Parainfluen 3 PCR NOT DETECTED 07/27/22 07:57 Nasal Parainfluen 4 PCR NOT DETECTED 07/27/22 07:57 Nasal RSV (PCR) NOT DETECTED 07/27/22 07:57 Nasal B.pertussis DNA PCR NOT DETECTED 07/27/22 07:57 Nasal C.pneumoniae (PCR) NOT DETECTED 07/27/22 07:57 Joe Human Metapneumo PCR NOT DETECTED 07/27/22 07:57 Nasal M.pneumoniae (PCR) NOT DETECTED 07/27/22 07:57 Nasal SARS-CoV-2 (PCR) NOT DETECTED 07/27/22 07:57
[2022-07-29] MEDS: LEVALBUTEROL 1.25 MG/3 ML NEB INH SCH ×3 (15:50→20:50)
[2022-07-29] MEDS: PRENATAL VITAMIN TABLET PO SCH (17:24)
[2022-07-30] MEDS: SODIUM CHLORIDE FLUSH 0.9% 10 ML SYRINGE IVP SCH ×2 (00:09→08:15)
[2022-07-30] MEDS: methylPREDNISolone SUCCINATE 40 MG/ML VIAL IVP SCH ×2 (06:00→14:24)
[2022-07-30 06:02] LABS: HCT - HEMATOCRIT 40.8 % (37.0-47.0); HGB - HEMOGLOBIN 14.1 g/dL (12.0-16.0); LYMPHOCYTES # (AUTO) 0.8 10^3/uL (1.5-3.5); LYMPHOCYTES % (AUTO) 10.8 %; MEAN CORPUSCULAR HEMOGLOBIN 30.5 pg (27.0-31.0); MEAN CORPUSCULAR HGB CONC 34.6 g/dL (32.0-36.0); MEAN CORPUSCULAR VOLUME 88.3 fL (81.0-99.0); MEAN PLATELET VOLUME 9.4 fL (7.9-10.8); MONOCYTES # (AUTO) 0.6 10^3/uL (0.0-1.0); MONOCYTES % (AUTO) 8.9 %; NEUTROPHILS # (AUTO) 5.6 10^3/uL (1.5-6.6); NEUTROPHILS % (AUTO) 79.9 %; PLT - PLATELET COUNT 198 10^3/uL (130-450); RED BLOOD COUNT 4.62 10^6/uL (4.20-5.40); RED CELL DISTRIBUTION WIDTH 11.5 % (12.0-15.0); WHITE BLOOD COUNT 7.1 x10^3/uL (4.8-10.8)
[2022-07-30 06:10] LABS: CALCIUM 9.1 mg/dL (8.5-10.3); CREATININE 0.5 mg/dL (0.4-1.0); POTASSIUM 4.1 mmol/L (3.5-5.0)
[2022-07-30] MEDS: BUDESONIDE 0.5 MG/2 ML NEB INH SCH (07:30)
[2022-07-30] MEDS: LEVALBUTEROL 1.25 MG/3 ML NEB INH SCH ×2 (07:30→10:53)
[2022-07-30] MEDS: PRENATAL VITAMIN TABLET PO SCH (08:14)
[2022-07-30] MEDS: SACCHAROMYCES BOULARDII 250 MG CAPSULE PO SCH (08:14)
[2022-07-30] MEDS: cefTRIAXone 1 GM in SODIUM CHLORIDE 0.9% MINIBAG 100 ML IV SCH (09:23)
[2022-07-30] MEDS: guaiFENesin 600 MG TABLET PO SCH (09:23)
[2022-07-30] MEDS: SODIUM CHLORIDE FLUSH 0.9% 10 ML SYRINGE IVP PRN (09:23)
--- NOTE | 2022-07-30 12:08 | Discharge Plan ---
Discharge Plan Problem Reviewed?: Yes Disposition: Home, Self Care Condition: Fair Prescriptions: predniSONE [Deltasone] 60 mg PO .TAPER #21 tab Ipratropium/Albuterol [Duoneb] 3 ml INH QID #100 kit levoFLOXacin [Levaquin] 750 mg PO DAILY #6 tablet guaiFENesin [Mucinex] 600 mg PO BID #30 tablet Albuterol Sulfate [Proair Hfa Inhaler] 1 - 2 puffs INH Q4H PRN #1 kit PRN Reason: Asthma Budesonide [Pulmicort] 0.5 mg INH RTBID #1 kit Tiotropium [place] [Spiriva Respimat] 2 puffs INH BID #1 kit Diet: Regular Activity Restrictions: Activity as Tolerated Shower Restrictions: No Driving Restrictions: No Instruction Topics: Asthma, Asthma Dc Health Concerns: You were hospitalized to treat a severe asthma attack brought on by bronchitis. You received nebulized bronchodilators, nebulized steroids, IV steroids, cough and phlegm medicines and antibiotics. You required supplemental oxygen. You are being discharged home with new prescriptions for your inhalers and your nebulizers, also steroid (Prednisone) to take by pill form that we will taper down slowly, a pill for breaking up the phlegm (Mucinex), and several more days of oral antibiotic (Levaquin). All new prescriptions were electronically sent to your [facility] pharmacy in [place]. You were tested to see if you need home oxygen and you do: You should have oxygen set at 2 L/min at rest and increase it to 3 L/min with activity. I suspect that after about a month you probably will not need oxygen. You need to see a Primary Care Provider or Alarm Mechanic who will order when you can stop using the oxygen, or whether you need it always available at home for future asthma attacks. You were provided a list of Primary Care Providers on [facility] and you should get an appointment and get established for care with a provider in the next 5 to 10 days. When you call, please say that you were an inpatient at the hospital, in serious condition, and therefore you definitely need an appointment soon. DO NOT GO OUTSIDE OR BREATH OUTDOOR AIR WHEN THE WEATHER IS SMOKEY. Having an air purifier is a very good idea. Being in an old musty house or cabin may have mold and dust that could be make your lungs worse and exposure to these is not advised. Also, young children bring home a lot of upper respiratory infections from Daycares, so exposure to that is not advised. Please discuss with your doctor testing for ALPHA-1 ANTI-TRYPSIN DEFICIENCY, and if not please get that tested. Also, you can ask to be tested for rare lung organisms like Fungi and Atypical Bacteria, to be treated for these if you have them. Plan of Treatment: As above. Care Goals: Improvement in symptoms and stabilization are the goals. Assessment: Patient understands the plan and recommendations. These instructions are provided as a reminder. Additional Instructions or Follow Up instructions: If you have new or worsening symptoms, call your (new) Primary Care Provider or (new) Alarm Mechanic for advice. or come to the ER. No Smoking: If you smoke, Please STOP! Call for help.
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
[2022-07-30 13:32] VITALS: BP 106/63
== END 2022-07-30 14:43 | disposition home or self-care (01) | DRG 189 ==
LOC: ED 00:02 → MS2 09:10 → OBSVTOIN 07-28 10:36
PROVIDERS: ADMIT Internal Medicine; ATTEND Internal Medicine
DX: J96.01 Acute respiratory failure with hypoxia (principal); J45.901 Unspecified asthma with (acute) exacerbation; R00.0 Tachycardia, unspecified; R10.13 Epigastric pain; R11.0 Nausea; Z20.822 Contact with and (suspected) exposure to COVID-19; Z32.02 Encounter for pregnancy test, result negative
CPT/HCPCS: 36415; 71046; 71275; 80048; 82306; 83735; 84100; 84703; 85025; 87070; 87205; 87633; 93005; 94150; 94640; 94660; 94761; 96365; 96366; 96367; 96375; 99283; 99285; A9270; J7626; Q9967

== ENCOUNTER 2023-02-02 18:10 | Emergency (ER) | payer MEDICAID ==
--- NOTE | 2023-02-02 19:52 | ED Physician Documentation ---
History of Present Illness - Stated complaint Stated Complaint: ALLERGIC REACTION - Chief complaint Chief Complaint: Allergic Rx - History obtained from History obtained from: Patient - Additonal information Additional information: Patient is a 23-year-old female with a history of egg allergy who unknowingly ate a sauce that was meal-based around 1730 p.m. this evening. Shortly thereafter she started feeling itchiness in her throat and nausea. She states that this is similar to other reaction she has had when she has ingested egg. She did not have Benadryl or an EpiPen available to her at home. She went to the pharmacy and picked up Benadryl and took a dose and is feeling better. She no longer feels scratchiness in her throat. She denies lip or tongue swelling, difficulty breathing, chest pain, dizziness. 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 : None HEENT: None Psych: None Musculoskeletal: None Derm: Eczema - Past Surgical History Past Surgical History: No - Present Medications Home Medications: Ambulatory Orders Medication Instructions Recorded Confirmed Albuterol 2.5 mg NEB Q4H PRN 07/27/22 12/16/22 diphenhydrAMINE [Benadryl] 50 mg PO DAILY PRN 07/27/22 12/16/22 Albuterol Sulfate [Proair Hfa 1 - 2 puffs INH Q4H PRN #1 kit 07/30/22 12/16/22 Inhaler] Budesonide [Pulmicort] 0.5 mg INH RTBID #1 kit 07/30/22 12/16/22 Ipratropium/Albuterol [Duoneb] 3 ml INH QID #100 kit 07/30/22 12/16/[address] [place] [Spiriva 2 puffs INH BID #1 kit 07/30/22 12/16/22 Respimat] guaiFENesin [Mucinex] 600 mg PO BID #30 tablet 07/30/22 12/16/22 levoFLOXacin [Levaquin] 750 mg PO DAILY #6 tablet 07/30/22 12/16/22 predniSONE [Deltasone] 60 mg PO .TAPER #21 tab 07/30/22 12/16/22 Albuterol 2.5 mg INH Q4H PRN #30 ml 12/16/22 Albuterol Sulf [Ventolin Hfa 1 - 2 puffs INH Q4HR PRN #1 each 12/16/22 Inhaler] Budesonide [Pulmicort] 0.5 mg IH BID #60 each 12/16/[address] [place] [Spiriva 2 puffs IH BID #4 gm 12/16/22 Respimat] predniSONE [Deltasone] 60 mg PO DAILY 5 Days #15 tablet 12/16/22 EPINEPHrine [Epinephrine] 0.3 mg IJ ONCE PRN #2 each 02/02/23 diphenhydrAMINE [Benadryl] 25 mg PO Q6HR PRN #20 cap 02/02/23 - Allergies Allergies/Adverse Reactions: Allergies Allergy/AdvReac Type Severity Reaction Status Date / Time egg AdvReac Anaphylaxis Verified 02/02/23 18:18 - Social History Does the pt smoke?: No Smoking Status: Never smoker Does the pt drink ETOH?: No Does the pt have substance abuse?: No - Immunizations Immunizations are current?: No - POLST Patient has POLST: No PD ED PE NORMAL - General General: Alert and oriented X 3, No acute distress, Well developed/nourished - HEENT HEENT: Atraumatic, Moist mucous membranes, Pharynx benign (No oral swelling) - Neck Neck: Supple, no meningeal sign - Cardiac Cardiac: RRR - Respiratory Respiratory: No respiratory distress, Clear bilaterally - Abdomen Abdomen: Soft, Non tender - Derm Derm: Warm and dry, No rash - Neuro Neuro: Normal speech Results - Vitals Vitals: Vital Signs - 24 hr 02/02/23 02/02/23 18:15 20:02 Temperature 36.9 C 36.4 C L Heart Rate 80 72 Respiratory 14 16 Rate Blood Pressure 110/64 100/65 O2 Saturation 100 100 Oxygen O2 Source Room air PD Medical Decision Making - ED course ED course: Pt presenting for evaluation after allergic reaction. VSS. Symptoms resolved by the time I have evaluated the patient after she has taken benadryl. No signs of anaphylaxis. Given quick resolution of her symptoms with benadryl, do not think steroids necessary at this time. Pt has not required steroids in past for allergic reactions. Pt given refill for epi pen as she no longer had one at home. She is counseled on strict return precautions. Departure - Departure Disposition: 01 Home, Self Care Clinical Impression: Allergic reaction Condition: Stable Instructions: ED Allergic Reaction General Other Prescriptions: diphenhydrAMINE [Benadryl] 25 mg PO Q6HR PRN #20 cap PRN Reason: Itching EPINEPHrine [Epinephrine] 0.3 mg IJ ONCE PRN #2 each PRN Reason: Allergy Symptoms Comments: You had an allergic reaction to ingesting something with egg in it. I have sent a refill of EpiPen to [facility] in [place] along with the Benadryl prescription. At this time I do not feel you need a course of prednisone as yo ur symptoms seemed to improve quickly after Benadryl. Please use this as needed. If it anytime though you feel tightness in your throat or difficulty breathing and you do not have your EpiPen available please call 911. Discharge Date/Time: 02/02/23 20:06
[2023-02-02 20:03] VITALS: BP 100/65
== END 2023-02-02 20:06 | disposition home or self-care (01) ==
LOC: ED 18:10
DX: T78.1XXA Other adverse food reactions, not elsewhere classified, initial encounter (principal); X58.XXXA Exposure to other specified factors, initial encounter; Z91.012 Allergy to eggs; Z79.899 Other long term (current) drug therapy
CPT/HCPCS: 99282; 99283

== ENCOUNTER 2023-04-20 09:16 | Emergency (ER) | payer MEDICAID ==
[2023-04-20] MEDS ORDERED: SODIUM CHLORIDE 0.9% 1,000 ML IV STA (09:28)
[2023-04-20] MEDS ORDERED: ONDANSETRON 4 MG/2 ML VIAL IVP STA (09:28)
--- NOTE | 2023-04-20 09:28 | ED Physician Documentation ---
PD HPI FEMALE - Stated complaint Stated Complaint: VOMITING,DIARRHEA,CRAMPS - Chief complaint Chief Complaint: Abd Pain - History obtained from History obtained from: Patient - Additional information Additional information: The patient is brought to the emergency department by his significant other for chief complaint of abdominal cramps, vomiting, and diarrhea. Her significant other also states that she felt hot to the touch, though they did not measure a temperature. The patient states is the first day of her period and she often has cramps but that she usually does not have vomiting and diarrhea. She is fairly healthy except for asthma. The patient states that she is still feeling nauseated and has been intermittently retching. She is not known to be . No other complaints at this time. 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 : None HEENT: None Psych: None Musculoskeletal: None Derm: Eczema - Past Surgical History Past Surgical History: No - Present Medications Home Medications: Ambulatory Orders Medication Instructions Recorded Confirmed Albuterol Sulf [Ventolin Hfa 1 - 2 puffs INH Q4HR PRN #1 each 12/16/22 Inhaler] EPINEPHrine [Epinephrine] 0.3 mg IJ ONCE PRN #2 each 02/02/23 Ondansetron Odt [Zofran] 4 mg TL Q6H PRN #10 tablet 04/20/23 - Allergies Allergies/Adverse Reactions: Allergies Allergy/AdvReac Type Severity Reaction Status Date / Time egg AdvReac Anaphylaxis Verified 04/20/23 09:22 - Social History Does the pt smoke?: No Smoking Status: Never smoker Does the pt drink ETOH?: No Does the pt have substance abuse?: No - Immunizations Immunizations are current?: No - POLST Patient has POLST: No PD ED PE NORMAL - Vitals Vital signs reviewed: Yes - General General: Well developed/nourished, Other (The patient is alert and answers questions appropriately. She is groaning and appears uncomfortable, occasionally retching.) - HEENT HEENT: Atraumatic, PERRL, EOMI, Moist mucous membranes - Neck Neck: Supple, no meningeal sign - Cardiac Cardiac: RRR, No murmur, Strong equal pulses - Respiratory Respiratory: No respiratory distress, Clear bilaterally - Abdomen Abdomen: Soft, Non distended, Other (Minimal tenderness lower abdomen, equal bilaterally. No rebound or guarding.) - Derm Derm: Normal color, Warm and dry, No rash - Extremities Extremities: No deformity, No edema - Neuro Neuro: Alert and oriented X 3, Other (Grossly intact) - Psych Psych: Normal mood, Normal affect Results - Vitals Vitals: Vital Signs - 24 hr 04/20/23 04/20/23 04/20/23 09:19 10:51 11:53 Temperature 36.9 C Heart Rate 75 114 H 88 Respiratory 16 20 16 Rate Blood Pressure 127/89 H 129/74 128/98 H O2 Saturation 100 99 97 Oxygen O2 Source Room air - Labs Labs: Laboratory Tests 04/20/23 04/20/23 04/20/23 09:38 09:57 09:58 WBC 12.6 H RBC 5.52 H Hgb 16.5 H Hct 48.1 H MCV 87.1 MCH 29.9 MCHC 34.3 RDW 12.1 Plt Count 168 MPV 10.9 H Neut # (Auto) 10.2 H Lymph # (Auto) 1.3 L Kimball # (Auto) 0.6 Eos # (Auto) 0.4 Baso # (Auto) 0.1 Absolute Nucleated RBC 0.00 Nucleated RBC % 0.0 Sodium 139 Potassium 4.2 Chloride 107 Carbon Dioxide 24 Anion Gap 8.0 BUN 11 Creatinine 0.7 Estimated GFR (MDRD) 106 Glucose 126 H Calcium 9.3 Total Bilirubin 1.0 AST 23 ALT 20 Alkaline Phosphatase 57 Total Protein 7.8 Albumin 4.9 Globulin 2.9 Albumin/Globulin Ratio 1.7 Lipase 47 Serum HCG, Qual NEGATIVE Urine Color Urine Clarity Urine pH Ur Specific [place] Urine Protein Urine Glucose (UA) Urine Ketones Urine Occult Blood Urine Nitrite Urine Bilirubin Urine Urobilinogen Ur Leukocyte Esterase Urine RBC Urine WBC Ur Squamous Epith Cells Urine Bacteria Urine Mucus Ur Microscopic Review Urine Culture Comments 04/20/23 10:00 WBC RBC Hgb Hct MCV MCH MCHC RDW Plt Count MPV Neut # (Auto) Lymph # (Auto) Kim[place] # (Auto) Eos # (Auto) Baso # (Auto) Absolute Nucleated RBC Nucleated RBC % Sodium Potassium Chloride Carbon Dioxide Anion Gap BUN Creatinine Estimated GFR (MDRD) Glucose Calcium Total Bilirubin AST ALT Alkaline Phosphatase Total Protein Albumin Globulin Albumin/Globulin Ratio Lipase Serum HCG, Qual Urine Color DARK YELLOW Urine Clarity CLEAR Urine pH 5.0 Ur Specific [place] >=1.030 H Urine Protein 30 H Urine Glucose (UA) NEGATIVE Urine Ketones NEGATIVE Urine Occult Blood MODERATE H Urine Nitrite NEGATIVE Urine Bilirubin NEGATIVE Urine Urobilinogen 0.2 (NORMAL) Ur Leukocyte Esterase NEGATIVE Urine RBC 0-5 Urine WBC 4-5 Ur Squamous Epith Cells FEW Squamous Urine Bacteria Few Urine Mucus Moderate Strands Ur Microscopic Review INDICATED Urine Culture Comments NOT INDICATED PD Medical Decision Making - ED course Complexity details: reviewed results, re-evaluated patient, considered differential, d/w patient ED course: The patient was treated symptomatically with IV fluids, as well as Zofran, in the emergency department. I did order CBC and ER abdominal panel on the patient, both of which were unremarkable. The patient was feeling better and I felt she was stable for discharge home. We have discussed the self limited nature of her illness, as well as the usual indications for return. Departure - Departure Disposition: 01 Home, Self Care Clinical Impression: Gastroenteritis, Dysmenorrhea Condition: Stable Instructions: ED Cramping Menstrual, ED Gastroenteritis Viral Prescriptions: Ondansetron Odt [Zofran] 4 mg TL Q6H PRN #10 tablet PRN Reason: Nausea / Vomiting Comments: Your labs look good. You most likely picked up one of the many viruses that are going around right now and causing such symptoms. You also happen to be having your period at the same time and some of the cramping you are having may be from this. You may take nausea medication as needed. You should try to drink plenty of fluids to stay hydrated. Your symptoms, whether from your period or from the stomach flu, will pass on their own. The viral syndrome and generally will last anywhere from a few days to a week or two. Please follow-up with your primary doctor as needed. Please take the nausea medication as needed. Your prescription for this has been electronically transmitted to the [facility] pharmacy in [place], your pharmacy of choice on record. Discharge Date/Time: 04/20/23 12:04
[2023-04-20 09:48] LABS: BASOPHILS # (AUTO) 0.1 10^3/uL (0.0-0.1); BASOPHILS % (AUTO) 0.7 %; EOSINOPHILS # (AUTO) 0.4 10^3/uL (0.0-0.7); EOSINOPHILS % (AUTO) 3.4 %; HCT - HEMATOCRIT 48.1 % (37.0-47.0); HGB - HEMOGLOBIN 16.5 g/dL (12.0-16.0); LYMPHOCYTES # (AUTO) 1.3 10^3/uL (1.5-3.5); LYMPHOCYTES % (AUTO) 10.3 %; MEAN CORPUSCULAR HEMOGLOBIN 29.9 pg (27.0-31.0); MEAN CORPUSCULAR HGB CONC 34.3 g/dL (32.0-36.0); MEAN CORPUSCULAR VOLUME 87.1 fL (81.0-99.0); MEAN PLATELET VOLUME 10.9 fL (7.9-10.8); MONOCYTES # (AUTO) 0.6 10^3/uL (0.0-1.0); MONOCYTES % (AUTO) 4.6 %; NEUTROPHILS # (AUTO) 10.2 10^3/uL (1.5-6.6); NEUTROPHILS % (AUTO) 80.7 %; PLT - PLATELET COUNT 168 10^3/uL (130-450); RED BLOOD COUNT 5.52 10^6/uL (4.20-5.40); RED CELL DISTRIBUTION WIDTH 12.1 % (12.0-15.0); WHITE BLOOD COUNT 12.6 x10^3/uL (4.8-10.8)
[2023-04-20 10:05] LABS: BILIRUBIN,URINE NEGATIVE (NEGATIVE); GLUCOSE, URINE (UA) NEGATIVE (NEGATIVE); KETONES,URINE (UA) NEGATIVE (NEGATIVE); LEUKOCYTE ESTERASE, URINE NEGATIVE (NEGATIVE); NITRITE,URINE NEGATIVE (NEGATIVE); OCCULT BLOOD,URINE MODERATE (NEGATIVE); PROTEIN,URINE 30 mg/dL (NEGATIVE); UROBILINOGEN,URINE 0.2 (NORMAL) E.U./dL (NORMAL)
[2023-04-20 10:19] LABS: CLARITY,URINE CLEAR (CLEAR)
[2023-04-20 10:20] LABS: RBC,URINE 0-5 /HPF (0-5); SQUAMOUS EPITHELIAL CELL,UR FEW Squamous (<= Few)
[2023-04-20 10:21] LABS: BACTERIA,URINE Few /HPF (None Seen); MUCUS,URINE Moderate Strands
[2023-04-20 10:42] LABS: HCG,QUALITATIVE BLOOD NEGATIVE
[2023-04-20 11:11] LABS: ALBUMIN 4.9 g/dL (3.2-5.5); ALBUMIN/GLOBULIN RATIO 1.7 (1.0-2.2); CALCIUM 9.3 mg/dL (8.5-10.3); CREATININE 0.7 mg/dL (0.4-1.0); POTASSIUM 4.2 mmol/L (3.5-5.0); TOTAL PROTEIN 7.8 g/dL (6.7-8.2)
[2023-04-20 11:56] VITALS: BP 128/98
== END 2023-04-20 12:04 | disposition home or self-care (01) ==
LOC: ED 09:16
DX: K52.9 Noninfective gastroenteritis and colitis, unspecified (principal); N94.6 Dysmenorrhea, unspecified
CPT/HCPCS: 36415; 80053; 81001; 81003; 83690; 84703; 85025; 87086; 96374; 99283

== ENCOUNTER 2023-05-15 13:38 | Emergency (ER) | payer MEDICAID ==
[2023-05-15] MEDS ORDERED: ALBUTEROL NEB 2.5 MG/3 ML INH STA ×2 (13:51→15:52)
[2023-05-15] MEDS ORDERED: methylPREDNISolone SUCCINATE 125 MG/2 ML VIAL IVP STA (13:51)
[2023-05-15] MEDS ORDERED: IPRATROPIUM/ALBUTEROL 3 ML NEB INH STA (13:51)
[2023-05-15] MEDS ORDERED: MAGNESIUM SULFATE 2 GRAM 2 GM/50 ML BAG IV ONE (13:51)
--- NOTE | 2023-05-15 13:52 | ED Physician Documentation ---
PD HPI DYSPNEA - Stated complaint Stated Complaint: SOA - Chief complaint Chief Complaint: Resp - History obtained from History obtained from: Patient - Additional information Additional information: 23-year-old woman with history of severe asthma presents with exacerbation of same for the last few hours. Triggered by going outside. She tried some inhaled steroids which she does not take routinely and her rescue inhaler without relief. She has had to be admitted before for asthma, never in an ICU setting. Only other health condition is eczema. No possibility of . No recent travel. No pedal edema or calf pain. PD PAST MEDICAL HISTORY - Past Medical History Cardiovascular: None Respiratory: Asthma (severe, since age 4) Neuro: None Endocrine/Autoimmune: None GI: None CLARIFIER: None : None HEENT: None Psych: None Musculoskeletal: None Derm: Eczema - Past Surgical History Past Surgical History: No - Present Medications Home Medications: Ambulatory Orders Medication Instructions Recorded Confirmed Albuterol Sulf [Ventolin Hfa 1 - 2 puffs INH Q4HR PRN #1 each 12/16/22 Inhaler] EPINEPHrine [Epinephrine] 0.3 mg IJ ONCE PRN #2 each 02/02/23 Ondansetron Odt [Zofran] 4 mg TL Q6H PRN #10 tablet 04/20/23 Albuterol 2.5 mg INH Q4H PRN #30 ml 05/15/23 Albuterol Sulf [Ventolin Hfa 1 - 2 puffs INH Q4HR PRN #1 each 05/15/23 Inhaler] Ipratropium/Albuterol [Duoneb] 3 ml INH Q6H #30 appful 05/15/23 predniSONE [Deltasone] 20 mg PO [id number] #21 tab 05/15/23 - Allergies Allergies/Adverse Reactions: Allergies Allergy/AdvReac Type Severity Reaction Status Date / Time egg AdvReac Anaphylaxis Verified 05/15/23 13:45 - Social History Does the pt smoke?: No Smoking Status: Never smoker Does the pt drink ETOH?: No Does the pt have substance abuse?: No - Immunizations Immunizations are current?: No - POLST Patient has POLST: No PD ED PE NORMAL - Vitals Vital signs reviewed: Yes - General General: Alert and oriented X 3, Other (Labored pursed lip breathing, speaking in short but full sentences.) - Cardiac Cardiac: Other (Tachycardic, regular, no murmur ) - Respiratory Respiratory: Other (Pursed lip breathing with tachypnea and slightly decreased air motion, inspiratory and expiratory wheezing.) - Abdomen Abdomen: Non tender - Extremities Extremities: No edema, No calf tenderness / cord - Neuro Neuro: Alert and oriented X 3, Normal speech Results - Vitals Vitals: Vital Signs - 24 hr 05/15/23 05/15/23 05/15/23 13:41 13:53 14:01 Temperature 36.8 C Heart Rate 133 H 126 H 120 H Respiratory 32 H 26 H 22 Rate Blood Pressure 136/101 H 139/80 H O2 Saturation 94 98 05/15/23 05/15/23 05/15/23 14:20 15:14 16:15 Temperature Heart Rate 125 H 121 H Respiratory 16 22 Rate Blood Pressure 110/65 O2 Saturation 96 05/15/23 16:54 Temperature Heart Rate 121 H Respiratory 22 Rate Blood Pressure 131/71 H O2 Saturation 97 Oxygen O2 Source Room air - Labs Labs: Laboratory Tests 05/15/23 05/15/23 05/15/23 14:30 14:30 14:39 WBC 16.5 H RBC 5.41 H Hgb 16.2 H Hct 46.2 MCV 85.4 MCH 29.9 MCHC 35.1 RDW 12.1 Plt Count 192 MPV 10.6 Neut # (Auto) 12.6 H Lymph # (Auto) 1.8 [place] # (Auto) 1.1 H Eos # (Auto) 0.9 H Baso # (Auto) 0.1 Absolute Nucleated RBC 0.00 Nucleated RBC % 0.0 VBG pH 7.349 VBG pCO2 42.5 VBG pO2 56.7 H VBG HCO3 22.9 L VBG Total CO2 24.2 VBG O2 Saturation 87.6 H VBG Base Excess -2.7 L Sodium Potassium Chloride Carbon Dioxide Anion Gap BUN Creatinine Estimated GFR (MDRD) Glucose Calcium Nasal Adenovirus (PCR) NOT DETECTED Nasal B. parapertussis DNA (PCR) NOT DETECTED Nasal Coronavir 229E PCR NOT DETECTED Nasal Coronavir HKU1 PCR NOT DETECTED Nasal Coronavir NL63 PCR NOT DETECTED Nasal Coronavir OC43 PCR NOT DETECTED Nasal Enterovir/Rhinovir PCR NOT DETECTED Nasal Influenza B PCR NOT DETECTED Nasal Influenza A PCR NOT DETECTED Nasal Parainfluen 1 PCR NOT DETECTED Nasal Parainfluen 2 PCR NOT DETECTED Nasal Parainfluen 3 PCR NOT DETECTED Nasal Parainfluen 4 PCR NOT DETECTED Nasal RSV (PCR) NOT DETECTED Nasal B.pertussis DNA PCR NOT DETECTED Nasal C.pneumoniae (PCR) NOT DETECTED Joe Human Metapneumo PCR NOT DETECTED Nasal M.pneumoniae (PCR) NOT DETECTED Nasal SARS-CoV-2 (PCR) NOT DETECTED 05/15/23 14:47 WBC RBC Hgb Hct MCV MCH MCHC RDW Plt Count MPV Neut # (Auto) Lymph # (Auto) [place] # (Auto) Eos # (Auto) Baso # (Auto) Absolute Nucleated RBC Nucleated RBC % VBG pH VBG pCO2 VBG pO2 VBG HCO3 VBG Total CO2 VBG O2 Saturation VBG Base Excess Sodium 140 Potassium 3.1 L Chloride 106 Carbon Dioxide 24 Anion Gap 10.0 BUN 9 Creatinine 0.6 Estimated GFR (MDRD) 126 Glucose 112 H Calcium 9.6 Nasal Adenovirus (PCR) Nasal B. parapertussis DNA (PCR) Nasal Coronavir 229E PCR Nasal Coronavir HKU1 PCR Nasal Coronavir NL63 PCR Nasal Coronavir OC43 PCR Nasal Enterovir/Rhinovir PCR Nasal Influenza B PCR Nasal Influenza A PCR Nasal Parainfluen 1 PCR Nasal Parainfluen 2 PCR Nasal Parainfluen 3 PCR Nasal Parainfluen 4 PCR Nasal RSV (PCR) Nasal B.pertussis DNA PCR Nasal C.pneumoniae (PCR) Joe Human Metapneumo PCR Nasal M.pneumoniae (PCR) Nasal SARS-CoV-2 (PCR) PD Medical Decision Making - ED course ED course: 23-year-old woman with severe asthma presents with an exacerbation. She was attended to immediately and initially looked quite ill and was administered a DuoNeb +7.5 mg of albuterol initially as well as IV magnesium and Solu-Medrol. She was much better after this, still with some wheezes and was given another 5 mg albuterol neb with clearance of her lung sounds and she requested discharge. Departure - Departure Disposition: 01 Home, Self Care Clinical Impression: Asthma exacerbation Condition: Good Record reviewed to determine appropriate education?: Yes Instructions: Asthma Dc Prescriptions: Albuterol Sulf [Ventolin Hfa Inhaler] 1 - 2 puffs INH Q4HR PRN #1 each PRN Reason: Shortness Of Air/Wheezing Albuterol 2.5 mg INH Q4H PRN #30 ml PRN Reason: Wheezing predniSONE [Deltasone] 20 mg PO [id number] #21 tab Ipratropium/Albuterol [Duoneb] 3 ml INH Q6H #30 appful Comments: I sent your prescription electronically to [facility] in [place]. Call your doctor to arrange a follow-up appointment, make the next available appointment. In the interim, return anytime if worse or if new symptoms develop. Forms: Activity restrictions Discharge Date/Time: 05/15/23 16:55
[2023-05-15 14:36] LABS: VBG PCO2 42.5 mmHg (41-51); VBG PH 7.349 (7.31-7.41)
[2023-05-15 14:37] LABS: BASOPHILS # (AUTO) 0.1 10^3/uL (0.0-0.1); BASOPHILS % (AUTO) 0.7 %; EOSINOPHILS # (AUTO) 0.9 10^3/uL (0.0-0.7); EOSINOPHILS % (AUTO) 5.6 %; HCT - HEMATOCRIT 46.2 % (37.0-47.0); HGB - HEMOGLOBIN 16.2 g/dL (12.0-16.0); LYMPHOCYTES # (AUTO) 1.8 10^3/uL (1.5-3.5); LYMPHOCYTES % (AUTO) 10.7 %; MEAN CORPUSCULAR HEMOGLOBIN 29.9 pg (27.0-31.0); MEAN CORPUSCULAR HGB CONC 35.1 g/dL (32.0-36.0); MEAN CORPUSCULAR VOLUME 85.4 fL (81.0-99.0); MEAN PLATELET VOLUME 10.6 fL (7.9-10.8); MONOCYTES # (AUTO) 1.1 10^3/uL (0.0-1.0); MONOCYTES % (AUTO) 6.4 %; NEUTROPHILS # (AUTO) 12.6 10^3/uL (1.5-6.6); NEUTROPHILS % (AUTO) 76.4 %; PLT - PLATELET COUNT 192 10^3/uL (130-450); RED BLOOD COUNT 5.41 10^6/uL (4.20-5.40); RED CELL DISTRIBUTION WIDTH 12.1 % (12.0-15.0); VBG BASE EXCESS -2.7 mmol/L (-2 - +2); VBG HCO3 22.9 mmol/L (23-28); VBG OXYGEN SATURATION 87.6 % (60-80); VBG PO2 56.7 mmHg (25-47); VBG TOTAL CO2 24.2 mmol/L (24-29); WHITE BLOOD COUNT 16.5 x10^3/uL (4.8-10.8)
[2023-05-15 15:04] LABS: CALCIUM 9.6 mg/dL (8.5-10.3); CREATININE 0.6 mg/dL (0.4-1.0); POTASSIUM 3.1 mmol/L (3.5-5.0)
[2023-05-15 16:14] LABS: B. PARAPERTUSSIS- RESP PCR PAN NOT DETECTED; B. PERTUSSIS- RESP PCR PANEL NOT DETECTED; C. PNEUMONIAE- RESP PCR PANEL NOT DETECTED; CORONAVIRUS 229E-RESP PCR NOT DETECTED; CORONAVIRUS HKU1-RESP PCR NOT DETECTED; CORONAVIRUS NL63-RESP PCR NOT DETECTED; CORONAVIRUS OC43-RESP PCR NOT DETECTED; HUMAN METAPNEUMOVIRUS NOT DETECTED; INFLUENZA A- RESP PCR PANEL NOT DETECTED; INFLUENZA B - RESP PCR PANEL NOT DETECTED; M. PNEUMONIAE- RESP PCR PANEL NOT DETECTED; PARAINFLUENZA VIRUS 1 NOT DETECTED; PARAINFLUENZA VIRUS 2 NOT DETECTED; PARAINFLUENZA VIRUS 3 NOT DETECTED; PARAINFLUENZA VIRUS 4 NOT DETECTED; RHINOVIRUS/ENTEROVIRUS NOT DETECTED; RSV- RESP PCR PANEL NOT DETECTED; SARS-CoV-2 -RESP PCR PANEL NOT DETECTED
[2023-05-15 17:00] VITALS: BP 131/71
== END 2023-05-15 16:55 | disposition home or self-care (01) ==
LOC: ED 13:38
DX: J45.901 Unspecified asthma with (acute) exacerbation (principal); Z20.822 Contact with and (suspected) exposure to COVID-19
CPT/HCPCS: 36415; 80048; 82803; 85025; 87633; 94640; 96365; 96375; 99284

== ENCOUNTER 2023-08-23 14:42 | Emergency (ER) | payer MEDICAID ==
--- NOTE | 2023-08-23 15:12 | ED Physician Documentation ---
PD HPI URI - Stated complaint Stated Complaint: VOMIT/FEVER/SOA - Chief complaint Chief Complaint: Resp - History obtained from History obtained from: Patient - History of Present Illness Timing - onset: How many weeks ago (1) Timing duration: Weeks (1) Timing details: Gradual onset, Still present (she had URI symptoms with congestion and cough. Cough worse and flaring her asthma. Not improved with usual albuterol MDI. uses budesonide neb daily. Having productive cough now 2 days. Also noting some dysuria the past 1-2 days. Nausea without vomiting.) Associated symptoms: Chills, Nasal congestion, Productive cough. No: Fever, Hemoptysis, Chest pain Contributing factors: COPD / asthma Recently seen: Not recently seen Review of Systems Constitutional: reports: Chills. denies: Fever Nose: reports: Congestion Throat: denies: Sore throat Cardiac: denies: Chest pain / pressure Respiratory: reports: Dyspnea, Cough, Wheezing GI: reports: Nausea. denies: Vomiting, Diarrhea PD PAST MEDICAL HISTORY - Past Medical History Cardiovascular: None Respiratory: Asthma (severe, since age 4) Neuro: None Endocrine/Autoimmune: None GI: None CHARGE HAND: None : None HEENT: None Psych: None Musculoskeletal: None Derm: Eczema - Past Surgical History Past Surgical History: No - Present Medications Home Medications: Ambulatory Orders Medication Instructions Recorded Confirmed EPINEPHrine [Epinephrine] 0.3 mg IJ ONCE PRN #2 each 02/02/23 Albuterol Sulf [Ventolin Hfa 1 - 2 puffs INH Q4HR PRN #1 each 05/15/23 Inhaler] Budesonide [Pulmicort] 0.5 mg IH DAILY #30 each 08/23/23 Cetirizine [ZyrTEC] 10 mg PO DAILY #30 tablet 08/23/23 Ondansetron Odt [Zofran] 4 mg TL Q6H PRN #15 tablet 08/23/23 cephALEXin [Keflex] 500 mg PO TID #15 cap 08/23/23 dexAMETHasone [Decadron] 4 mg PO DAILY #7 tablet 08/23/23 - Allergies Allergies/Adverse Reactions: Allergies Allergy/AdvReac Type Severity Reaction Status Date / Time egg AdvReac Anaphylaxis Verified 08/23/23 14:58 - Social History Does the pt smoke?: No Smoking Status: Never smoker Does the pt drink ETOH?: No Does the pt have substance abuse?: No - Immunizations Immunizations are current?: No - POLST Patient has POLST: No PD ED PE NORMAL - Vitals Vital signs reviewed: Yes - General General: Alert and oriented X 3, No acute distress, Well developed/nourished - HEENT HEENT: Ears normal, Pharynx benign - Neck Neck: Supple, no meningeal sign, No adenopathy - Cardiac Cardiac: RRR, No murmur - Respiratory Respiratory: No: Clear bilaterally (bilateral weheezing and decreased tidal volume. No coarse sounds per se. ) - Abdomen Abdomen: Soft, Non tender - Derm Derm: Normal color, Warm and dry - Extremities Extremities: No edema, No calf tenderness / cord - Neuro Neuro: Alert and oriented X 3, Normal speech Results - Vitals Vitals: Vital Signs - 24 hr 08/23/23 08/23/23 08/23/23 14:49 15:53 16:58 Temperature 37.1 C 37.0 C Heart Rate 113 H 80 76 Respiratory 19 18 16 Rate Blood Pressure 129/88 H 120/72 O2 Saturation 96 98 Oxygen O2 Source Room air - Labs Labs: Laboratory Tests 08/23/23 08/23/23 14:56 15:38 Urine Color YELLOW Urine Clarity HAZY Urine pH 7.5 Ur Specific [place] 1.020 Urine Protein 30 H Urine Glucose (UA) NEGATIVE Urine Ketones TRACE Urine Occult Blood NEGATIVE Urine Nitrite NEGATIVE Urine Bilirubin NEGATIVE Urine Urobilinogen 0.2 (NORMAL) Ur Leukocyte Esterase NEGATIVE Urine RBC 0-5 Urine WBC 0-3 Ur Squamous Epith Cells RARE Squamous Urine Bacteria Rare Ur Microscopic Review INDICATED Urine Culture Comments NOT INDICATED Urine HCG, Qual NEGATIVE Nasal Adenovirus (PCR) NOT DETECTED Nasal B. parapertussis DNA (PCR) NOT DETECTED Nasal Coronavir 229E PCR NOT DETECTED Nasal Coronavir HKU1 PCR NOT DETECTED Nasal Coronavir NL63 PCR NOT DETECTED Nasal Coronavir OC43 PCR NOT DETECTED Nasal Enterovir/Rhinovir PCR NOT DETECTED Nasal Influenza B PCR NOT DETECTED Nasal Influenza A PCR NOT DETECTED Nasal Parainfluen 1 PCR NOT DETECTED Nasal Parainfluen 2 PCR NOT DETECTED Nasal Parainfluen 3 PCR NOT DETECTED Nasal Parainfluen 4 PCR NOT DETECTED Nasal RSV (PCR) NOT DETECTED Nasal B.pertussis DNA PCR NOT DETECTED Nasal C.pneumoniae (PCR) NOT DETECTED Joe Human Metapneumo PCR NOT DETECTED Nasal M.pneumoniae (PCR) NOT DETECTED Nasal SARS-CoV-2 (PCR) NOT DETECTED - Rads (name of study) chest xray Relevant Findings:: Prelim report reviewed, EMP independent interpretation of test (no infiltrates effusions nor PTX. ) PD Medical Decision Making - ED course Complexity details: reviewed results, re-evaluated patient (improved reasonably well with duoneb. Will give steroids PO, and consider abx given asthma and worsening productive cough. ), considered differential (Has URI, exac asthma, cough worsening. Also some dysuria but UA is normal. Can give abx though that would cover bronchitis as well as potential UTI with Keflex. ), d/w patient Departure - Departure Disposition: 01 Home, Self Care Clinical Impression: Exacerbation of asthma, Lower respiratory infection, Dysuria Condition: Stable Record reviewed to determine appropriate education?: Yes Prescriptions: dexAMETHasone [Decadron] 4 mg PO DAILY #7 tablet cephALEXin [Keflex] 500 mg PO TID #15 cap Budesonide [Pulmicort] 0.5 mg IH DAILY #30 each Ondansetron Odt [Zofran] 4 mg TL Q6H PRN #15 tablet PRN Reason: Nausea / Vomiting Cetirizine [ZyrTEC] 10 mg PO DAILY #30 tablet Comments: Your chest x-ray is clear without any signs of pneumonia. Your viral panel test is negative for the major viruses. It still certainly possible you may have another viral illness not on that panel causing your symptoms. However it does give credence to the possibility that he may have a bacterial component at this point so some antibiotics may be appropriate. In conjunction with the flareup of your asthma, we typically use oral steroids as well to supplement your inhaled steroid. Continue with your albuterol inhaler or nebulizer 4 times daily and extra times if needed over the next several days to week. 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 Cetirizine for allergies/congestion. Your urine sample does not show any signs of significant bladder infection but there are some bacteria and white cells and in conjunction with your urinary symptoms, it can be appropriate to treat as a bladder infection. I chose an antibiotic that will be appropriate for both the bronchitis and bladder. I sent your prescriptions to [facility] pharmacy. Off work for a day or 2. Stay well-hydrated. I would anticipate improvement over the next several days and resolution over 4 to 5 days. Return if worse. Forms: PCP List, Activity restrictions Discharge Date/Time: 08/23/23 16:58
[2023-08-23] MEDS ORDERED: IPRATROPIUM/ALBUTEROL 3 ML NEB INH STA (15:34)
[2023-08-23] MEDS ORDERED: CETIRIZINE 10 MG TABLET PO STA (15:35)
[2023-08-23] MEDS ORDERED: dexAMETHasone 4 MG TABLET PO STA (15:35)
[2023-08-23] MEDS ORDERED: ONDANSETRON ODT 4 MG TABLET TL STA (15:41)
[2023-08-23 15:45] LABS: BILIRUBIN,URINE NEGATIVE (NEGATIVE); GLUCOSE, URINE (UA) NEGATIVE (NEGATIVE); KETONES,URINE (UA) TRACE mg/dL (NEGATIVE); LEUKOCYTE ESTERASE, URINE NEGATIVE (NEGATIVE); NITRITE,URINE NEGATIVE (NEGATIVE); OCCULT BLOOD,URINE NEGATIVE (NEGATIVE); PH,URINE 7.5 PH (5.0-7.5); PROTEIN,URINE 30 mg/dL (NEGATIVE); UROBILINOGEN,URINE 0.2 (NORMAL) E.U./dL (NORMAL)
[2023-08-23 15:47] LABS: CLARITY,URINE HAZY (CLEAR); HCG UR QUAL NEGATIVE
[2023-08-23 16:02] LABS: BACTERIA,URINE Rare /HPF (None Seen); RBC,URINE 0-5 /HPF (0-5); SQUAMOUS EPITHELIAL CELL,UR RARE Squamous (<= Few); WBC,URINE 0-3 /HPF (0-5)
[2023-08-23 16:05] LABS: B. PARAPERTUSSIS- RESP PCR PAN NOT DETECTED; B. PERTUSSIS- RESP PCR PANEL NOT DETECTED; C. PNEUMONIAE- RESP PCR PANEL NOT DETECTED; CORONAVIRUS 229E-RESP PCR NOT DETECTED; CORONAVIRUS HKU1-RESP PCR NOT DETECTED; CORONAVIRUS NL63-RESP PCR NOT DETECTED; CORONAVIRUS OC43-RESP PCR NOT DETECTED; HUMAN METAPNEUMOVIRUS NOT DETECTED; INFLUENZA A- RESP PCR PANEL NOT DETECTED; INFLUENZA B - RESP PCR PANEL NOT DETECTED; M. PNEUMONIAE- RESP PCR PANEL NOT DETECTED; PARAINFLUENZA VIRUS 1 NOT DETECTED; PARAINFLUENZA VIRUS 2 NOT DETECTED; PARAINFLUENZA VIRUS 3 NOT DETECTED; PARAINFLUENZA VIRUS 4 NOT DETECTED; RHINOVIRUS/ENTEROVIRUS NOT DETECTED; RSV- RESP PCR PANEL NOT DETECTED; SARS-CoV-2 -RESP PCR PANEL NOT DETECTED
--- NOTE | 2023-08-23 16:54 | XRAY Report ---
PROCEDURE: Chest 1 View X-Ray INDICATIONS: dyspnea;cough TECHNIQUE: One view of the chest was acquired. COMPARISON: 12/16/2022, 07/27/2022 FINDINGS: Surgical changes and devices: None. Lungs and pleura: No pleural effusions or pneumothorax. Lungs are clear. Mediastinum: Mediastinal contours appear normal. Heart size is normal. Bones and chest wall: No suspicious bony lesions. Overlying soft tissues appear unremarkable. IMPRESSION: Portable chest study within normal limits. Reviewed by: Andre Morgan MD on 08/23/2023 3:53 PM AKDT Approved by: Andre Morgan MD on 08/23/2023 3:53 PM AKDT Station ID: [id number]
[2023-08-23 17:06] VITALS: BP 120/72; O2SAT 98
== END 2023-08-23 16:58 | disposition home or self-care (01) ==
LOC: ED 14:42
DX: J45.901 Unspecified asthma with (acute) exacerbation (principal); J22 Unspecified acute lower respiratory infection; R30.0 Dysuria; Z20.822 Contact with and (suspected) exposure to COVID-19; Z79.899 Other long term (current) drug therapy
CPT/HCPCS: 71045; 81001; 81025; 87633; 94640; 99284; A9270; J8540; Q0162; 81003; 87086

== ENCOUNTER 2023-10-03 09:41 | Emergency (ER) | payer MEDICAID ==
[2023-10-03] MEDS: IPRATROPIUM/ALBUTEROL 3 ML NEB INH STA (10:05)
--- NOTE | 2023-10-03 10:20 | ED Physician Documentation ---
PD HPI HEENT - Stated complaint Stated Complaint: SOA,FEVER,BODY ACHES - Chief complaint Chief Complaint: Resp - History obtained from History obtained from: Patient - Additional information Additional information: The patient comes to the emergency department chief complaint of upper respiratory symptoms and asthma exacerbation. She states that she has a longstanding history of asthma and normally uses both an inhaler and nebulized albuterol and steroid at home. She states that last week, she felt as though she was having to use her inhaler more than usual and then by the weekend, began to develop upper respiratory symptoms including cough and runny nose. She states her asthma really got bad then. The patient states that she came here because she was just feeling as though her inhaler was not helping and she was getting worse. She complains of wheezing and shortness of breath. No fevers or chills. No abdominal symptoms. She has eczema but is otherwise healthy. PD PAST MEDICAL HISTORY - Past Medical History Past Medical History: Yes Cardiovascular: None Respiratory: Asthma Neuro: None Endocrine/Autoimmune: None GI: None COMPLAINT CLERK: None : None HEENT: None Psych: None Musculoskeletal: None Derm: Eczema - Past Surgical History Past Surgical History: No - Present Medications Home Medications: Ambulatory Orders Medication Instructions Recorded Confirmed EPINEPHrine [Epinephrine] 0.3 mg IJ ONCE PRN #2 each 02/02/23 10/03/23 Albuterol Sulf [Ventolin Hfa 1 - 2 puffs INH Q4HR PRN #1 each 05/15/23 10/03/23 Inhaler] Budesonide [Pulmicort] 0.5 mg IH DAILY #30 each 08/23/23 10/03/23 Albuterol 2.5 mg INH Q4H PRN #60 each 10/03/23 Albuterol Sulf [Ventolin Hfa 1 - 2 puffs INH Q4HR PRN #1 each 10/03/23 Inhaler] predniSONE [Deltasone] 10 mg PO [id number] #42 tab 10/03/23 - Allergies Allergies/Adverse Reactions: Allergies Allergy/AdvReac Type Severity Reaction Status Date / Time egg AdvReac Anaphylaxis Verified 10/03/23 09:49 - Social History Does the pt smoke?: No Smoking Status: Never smoker Does the pt drink ETOH?: No Does the pt have substance abuse?: No - Immunizations Immunizations are current?: No - POLST Patient has POLST: No PD ED PE NORMAL - Vitals Vital signs reviewed: Yes - General General: Alert and oriented X 3, No acute distress, Well developed/nourished - HEENT HEENT: Atraumatic, PERRL, EOMI, Moist mucous membranes - Neck Neck: Supple, no meningeal sign - Cardiac Cardiac: RRR, No murmur, Strong equal pulses - Respiratory Respiratory: No respiratory distress, Other (Moderate wheezing throughout bilateral lung mcghee. Slightly prolonged expiratory phase.) - Abdomen Abdomen: Soft, Non tender, Non distended - Derm Derm: Normal color, Warm and dry, No rash - Extremities Extremities: No deformity, No edema - Neuro Neuro: Alert and oriented X 3 - Psych Psych: Normal mood, Normal affect Results - Vitals Vitals: Oxygen O2 Source Room air - Labs Labs: Laboratory Tests 10/03/23 09:55 Nasal Adenovirus (PCR) NOT DETECTED Nasal B. parapertussis DNA (PCR) NOT DETECTED Nasal Coronavir 229E PCR NOT DETECTED Nasal Coronavir HKU1 PCR NOT DETECTED Nasal Coronavir NL63 PCR NOT DETECTED Nasal Coronavir OC43 PCR NOT DETECTED Nasal Enterovir/Rhinovir PCR NOT DETECTED Nasal Influenza B PCR NOT DETECTED Nasal Influenza A PCR NOT DETECTED Nasal Parainfluen 1 PCR NOT DETECTED Nasal Parainfluen 2 PCR NOT DETECTED Nasal Parainfluen 3 PCR NOT DETECTED Nasal Parainfluen 4 PCR NOT DETECTED Nasal RSV (PCR) NOT DETECTED Nasal B.pertussis DNA PCR NOT DETECTED Nasal C.pneumoniae (PCR) NOT DETECTED Joe Human Metapneumo PCR NOT DETECTED Nasal M.pneumoniae (PCR) NOT DETECTED Nasal SARS-CoV-2 (PCR) NOT DETECTED PD Medical Decision Making - ED course Complexity details: reviewed results, re-evaluated patient, considered differential, d/w patient ED course: The patient was fairly well-appearing in the emergency department but was wheezing quite heavily and was started on a DuoNeb as well as a dose of Decadron. She was still wheezing significantly after the DuoNeb and so I did order an albuterol nebulizer treatment as well. On re-evaluation, the pt was still mildly wheezy, but reported feeling much better, and O2 sats remained high. I felt she was stable for d/c home. I have refilled her MDI and nebules, as well as prescribed a steroid course. We have discussed the usual indications for follow-up and return. Departure - Departure Disposition: Home, Self Care Clinical Impression: Acute viral syndrome Acute asthma exacerbation Qualifiers: Asthma severity: mild Asthma persistence: intermittent Qualified Code(s): J45.21 - Mild intermittent asthma with (acute) exacerbation Condition: Stable Instructions: ED Reactive Airway Disease, ED Viral Syndrome Prescriptions: Albuterol Sulf [Ventolin Hfa Inhaler] 1 - 2 puffs INH Q4HR PRN #1 each PRN Reason: Shortness Of Air/Wheezing Albuterol 2.5 mg INH Q4H PRN #60 each PRN Reason: Wheezing predniSONE [Deltasone] 10 mg PO [id number] #42 tab Comments: Your oxygen saturation is good, but you were found to have quite a bit of wheezing today. You were started on a course of steroids as well as given the breathing treatments and you should continue the steroid course for the next 10 days. A prescription for steroid taper, along with the refills on your albuterol inhaler and nebulizers has been electronically transmitted to the [facility] pharmacy in [place]. Please pick your meds up today she can have them on hand. If you develop severe shortness of breath and wheezing that is not responsive to your meds please return to the emergency department immediately. Otherwise, your other symptoms are most likely due to one of the many upper respiratory viruses that are going around right now and will ultimately resolve on their own. Forms: PCP List Discharge Date/Time: 10/03/23 11:41
[2023-10-03] MEDS: ALBUTEROL NEB 2.5 MG/3 ML INH STA (10:30)
[2023-10-03] MEDS: DEXAMETHASONE 10 MG/ML VIAL IM STA (10:34)
[2023-10-03 10:47] LABS: B. PARAPERTUSSIS- RESP PCR PAN NOT DETECTED; B. PERTUSSIS- RESP PCR PANEL NOT DETECTED; C. PNEUMONIAE- RESP PCR PANEL NOT DETECTED; CORONAVIRUS 229E-RESP PCR NOT DETECTED; CORONAVIRUS HKU1-RESP PCR NOT DETECTED; CORONAVIRUS NL63-RESP PCR NOT DETECTED; CORONAVIRUS OC43-RESP PCR NOT DETECTED; HUMAN METAPNEUMOVIRUS NOT DETECTED; INFLUENZA A- RESP PCR PANEL NOT DETECTED; INFLUENZA B - RESP PCR PANEL NOT DETECTED; M. PNEUMONIAE- RESP PCR PANEL NOT DETECTED; PARAINFLUENZA VIRUS 1 NOT DETECTED; PARAINFLUENZA VIRUS 2 NOT DETECTED; PARAINFLUENZA VIRUS 3 NOT DETECTED; PARAINFLUENZA VIRUS 4 NOT DETECTED; RHINOVIRUS/ENTEROVIRUS NOT DETECTED; RSV- RESP PCR PANEL NOT DETECTED; SARS-CoV-2 -RESP PCR PANEL NOT DETECTED
[2023-10-03 10:58] VITALS: O2SAT 96
[2023-10-03 11:36] VITALS: BP 126/74
== END 2023-10-03 11:41 | disposition home or self-care (01) ==
LOC: ED 09:41
DX: J45.21 Mild intermittent asthma with (acute) exacerbation (principal); B34.9 Viral infection, unspecified; Z20.822 Contact with and (suspected) exposure to COVID-19
CPT/HCPCS: 87633; 94640; 96372; 99283

== ENCOUNTER 2023-11-01 19:25 | Emergency (ER) | payer MEDICAID ==
[2023-11-01] MEDS ORDERED: IPRATROPIUM/ALBUTEROL 3 ML NEB INH STA (20:07)
[2023-11-01] MEDS ORDERED: ONDANSETRON ODT 4 MG TABLET TL STA (20:07)
[2023-11-01] MEDS ORDERED: predniSONE 20 MG TABLET PO STA (20:14)
--- NOTE | 2023-11-01 20:20 | ED Physician Documentation ---
PD HPI URI - Stated complaint Stated Complaint: VOMIT/COUGH - Chief complaint Chief Complaint: Resp - History obtained from History obtained from: Patient, Family - History of Present Illness Pain level max: 0 Pain level now: 0 Associated symptoms: Nasal congestion, Rhinorrhea, Dry cough. No: Fever, Chills, Chest pain, Dyspnea Contributing factors: Sick contact, COPD / asthma - Additional information Additional information: 23-year-old female states that she has a history of asthma. Has had rhinorrhea, cough and congestion for the past several days. Feels like she is having increasing difficulty breathing today. Denies any possibility of . She has been on steroids in the past but not currently on steroids. Had emesis x 1 today. No diarrhea or constipation. Review of Systems Constitutional: denies: Fever, Chills Nose: reports: Rhinorrhea / runny nose, Congestion GI: denies: Diarrhea PD PAST MEDICAL HISTORY - Past Medical History Cardiovascular: None Respiratory: Asthma Neuro: None Endocrine/Autoimmune: None GI: None CABLE PLACER: None : None HEENT: None Psych: None Musculoskeletal: None Derm: Eczema - Past Surgical History Past Surgical History: No - Present Medications Home Medications: Ambulatory Orders Medication Instructions Recorded Confirmed EPINEPHrine [Epinephrine] 0.3 mg IJ ONCE PRN #2 each 02/02/23 10/03/23 Budesonide [Pulmicort] 0.5 mg IH DAILY #30 each 08/23/23 10/03/23 Albuterol Sulf [Ventolin Hfa 1 - 2 puffs INH Q4HR PRN #1 each 10/03/23 Inhaler] Albuterol Sulf [Ventolin Hfa 1 - 2 puffs INH Q4HR PRN #1 each 11/01/23 Inhaler] Cetirizine HCl/Pseudoephedrine 1 tab PO BID PRN #20 tab 11/01/23 [Zyrtec-D ER 5 mg-120 mg Tablet] Ondansetron Odt [Zofran] 4 mg TL Q6H PRN #10 tablet 11/01/23 predniSONE [Deltasone] 10 mg PO [id number] #42 tab 11/01/23 - Allergies Allergies/Adverse Reactions: Allergies Allergy/AdvReac Type Severity Reaction Status Date / Time egg AdvReac Anaphylaxis Verified 11/01/23 19:35 - Social History Does the pt smoke?: No Smoking Status: Never smoker Does the pt drink ETOH?: No Does the pt have substance abuse?: No - Immunizations Immunizations are current?: No - POLST Patient has POLST: No PD ED PE NORMAL - Vitals Vital signs reviewed: Yes - General General: Alert and oriented X 3, No acute distress - HEENT HEENT: Moist mucous membranes - Neck Neck: Supple, no meningeal sign - Cardiac Cardiac: RRR, Strong equal pulses - Respiratory Respiratory: No respiratory distress, Other (mild wheezing B) - Abdomen Abdomen: Soft, Non tender, Non distended - Derm Derm: Warm and dry - Extremities Extremities: No edema - Neuro Neuro: Alert and oriented X 3 - Psych Psych: Normal mood, Normal affect Results - Vitals Vitals: Vital Signs - 24 hr 11/01/23 11/01/23 11/01/23 19:29 20:15 21:08 Temperature 37.0 C 37.1 C Heart Rate 86 84 78 Respiratory 17 28 H 17 Rate Blood Pressure 108/67 111/51 L O2 Saturation 96 98 Oxygen O2 Source Room air - Labs Labs: Laboratory Tests 11/01/23 19:36 Nasal Adenovirus (PCR) NOT DETECTED Nasal B. parapertussis DNA (PCR) NOT DETECTED Nasal Coronavir 229E PCR NOT DETECTED Nasal Coronavir HKU1 PCR NOT DETECTED Nasal Coronavir NL63 PCR NOT DETECTED Nasal Coronavir OC43 PCR NOT DETECTED Nasal Enterovir/Rhinovir PCR DETECTED A Nasal Influenza B PCR NOT DETECTED Nasal Influenza A PCR NOT DETECTED Nasal Parainfluen 1 PCR NOT DETECTED Nasal Parainfluen 2 PCR NOT DETECTED Nasal Parainfluen 3 PCR NOT DETECTED Nasal Parainfluen 4 PCR NOT DETECTED Nasal RSV (PCR) NOT DETECTED Nasal B.pertussis DNA PCR NOT DETECTED Nasal C.pneumoniae (PCR) NOT DETECTED Joe Human Metapneumo PCR NOT DETECTED Nasal M.pneumoniae (PCR) NOT DETECTED Nasal SARS-CoV-2 (PCR) NOT DETECTED PD Medical Decision Making - ED course Complexity details: reviewed results, re-evaluated patient, considered differential, d/w patient ED course: 23-year-old female positive for rhinovirus/enterovirus. Given a nebulizer treatment here. Wheezing resolved. No respiratory distress. No hypoxia. Patient is very well-appearing, nontoxic. Afebrile. Will place on steroids, albuterol, decongestants and Zofran for home. Abdomen is soft, nontender nondistended. No urinary symptoms. Patient will follow-up with her PCP for further care. Patient counseled regarding signs and symptoms for which I believ e and urgent re-evaluation would be necessary. Patient with good understanding of and agreement to plan and is comfortable going home at this time This document was made in part using voice recognition software. While efforts are made to proofread this document, sound alike and grammatical errors may occur. Departure - Departure Disposition: Home, Self Care Clinical Impression: Rhinovirus Asthma exacerbation Qualifiers: Asthma severity: unspecified severity Asthma persistence: unspecified Qualified Code(s): J45.901 - Unspecified asthma with (acute) exacerbation Condition: Good Instructions: ED Reactive Airway Disease, ED Viral Syndrome Follow-Up: Silvana Santos MD [Primary Care Provider] - Prescriptions: Albuterol Sulf [Ventolin Hfa Inhaler] 1 - 2 puffs INH Q4HR PRN #1 each PRN Reason: Shortness Of Air/Wheezing predniSONE [Deltasone] 10 mg PO [id number] #42 tab Ondansetron Odt [Zofran] 4 mg TL Q6H PRN #10 tablet PRN Reason: Nausea / Vomiting Cetirizine HCl/Pseudoephedrine [Zyrtec-D ER 5 mg-120 mg Tablet] 1 tab PO BID PRN #20 tab PRN Reason: nasal congestion Comments: Your prescriptions were sent to [facility] in [place]. Please follow-up with your doctor for further care. You are positive for rhinovirus/enterovirus tonight. This is a viral upper respiratory infection that will improve on its own. Antibiotics are not needed. Forms: PCP List, Activity restrictions Discharge Date/Time: 11/01/23 21:08
[2023-11-01 20:37] LABS: B. PARAPERTUSSIS- RESP PCR PAN NOT DETECTED; B. PERTUSSIS- RESP PCR PANEL NOT DETECTED; C. PNEUMONIAE- RESP PCR PANEL NOT DETECTED; CORONAVIRUS 229E-RESP PCR NOT DETECTED; CORONAVIRUS HKU1-RESP PCR NOT DETECTED; CORONAVIRUS NL63-RESP PCR NOT DETECTED; CORONAVIRUS OC43-RESP PCR NOT DETECTED; HUMAN METAPNEUMOVIRUS NOT DETECTED; INFLUENZA A- RESP PCR PANEL NOT DETECTED; INFLUENZA B - RESP PCR PANEL NOT DETECTED; M. PNEUMONIAE- RESP PCR PANEL NOT DETECTED; PARAINFLUENZA VIRUS 1 NOT DETECTED; PARAINFLUENZA VIRUS 2 NOT DETECTED; PARAINFLUENZA VIRUS 3 NOT DETECTED; PARAINFLUENZA VIRUS 4 NOT DETECTED; RHINOVIRUS/ENTEROVIRUS DETECTED; RSV- RESP PCR PANEL NOT DETECTED; SARS-CoV-2 -RESP PCR PANEL NOT DETECTED
[2023-11-01 21:12] VITALS: BP 111/51; O2SAT 98
== END 2023-11-01 21:08 | disposition home or self-care (01) ==
LOC: ED 19:25
DX: J45.901 Unspecified asthma with (acute) exacerbation (principal); B34.8 Other viral infections of unspecified site; Z11.52 Encounter for screening for COVID-19
CPT/HCPCS: 87633; 94640; 94664; 99283; J7512; Q0162

== ENCOUNTER 2023-11-22 19:31 | Emergency (ER) | payer MEDICAID ==
[2023-11-22] MEDS ORDERED: IPRATROPIUM/ALBUTEROL 3 ML NEB INH STA ×2 (19:46→19:47)
[2023-11-22] MEDS ORDERED: predniSONE 20 MG TABLET PO STA (19:51)
[2023-11-22] MEDS ORDERED: ONDANSETRON ODT 4 MG TABLET TL STA (19:51)
--- NOTE | 2023-11-22 19:52 | ED Physician Documentation ---
History of Present Illness - Stated complaint Stated Complaint: SOA/VOMIT/ABD PX - Chief complaint Chief Complaint: General - History obtained from History obtained from: Patient - Additonal information Additional information: 23-year-old has a pretty bad history of asthma. Was hospitalized once about a year ago, never in the ICU. Her nebulizer broke a few days ago and then since then she has had increasing shortness of breath and wheezing with a dry cough. No fevers. She did recently have RSV but feels like she got completely better from that. PD PAST MEDICAL HISTORY - Past Medical History Cardiovascular: None Respiratory: Asthma Neuro: None Endocrine/Autoimmune: None GI: None MANAGER TECHNICAL SUPPORT: None : None HEENT: None Psych: None Musculoskeletal: None Derm: Eczema - Past Surgical History Past Surgical History: No - Present Medications Home Medications: Ambulatory Orders Medication Instructions Recorded Confirmed EPINEPHrine [Epinephrine] 0.3 mg IJ ONCE PRN #2 each 02/02/23 10/03/23 Albuterol Sulf [Ventolin Hfa 1 - 2 puffs INH Q4HR PRN #1 each 10/03/23 Inhaler] Albuterol 2.5 mg INH Q4H PRN #30 ml 11/22/23 Nebulizer and Compressor 1 each MC ONCE #1 ea 11/22/23 [Compressor Nebulizer System] predniSONE [Deltasone] 60 mg PO DAILY 5 Days #15 tablet 11/22/23 - Allergies Allergies/Adverse Reactions: Allergies Allergy/AdvReac Type Severity Reaction Status Date / Time egg AdvReac Anaphylaxis Verified 11/22/23 19:42 - Social History Does the pt smoke?: No Smoking Status: Never smoker Does the pt drink ETOH?: No Does the pt have substance abuse?: No - Immunizations Immunizations are current?: No - POLST Patient has POLST: No PD ED PE NORMAL - Vitals Vital signs reviewed: Yes - General General: Alert and oriented X 3, No acute distress - HEENT HEENT: PERRL, Pharynx benign - Cardiac Cardiac: RRR, No murmur - Respiratory Respiratory: Other (She is tachypneic but speaking in full sentences, but not full paragraphs so to speak. She is diffusely wheezy throughout with moderate air motion. No focal findings.) - Extremities Extremities: No edema, No calf tenderness / cord - Neuro Neuro: Alert and oriented X 3, Normal speech Results - Vitals Vitals: Vital Signs - 24 hr 11/22/23 11/22/23 11/22/23 19:37 20:00 20:02 Temperature 36.5 C Heart Rate 120 H 107 H 111 H Respiratory 18 18 30 H Rate Blood Pressure 121/73 O2 Saturation 97 95 Oxygen O2 Source Room air PD Medical Decision Making - ED course ED course: 23-year-old woman with status asthmaticus, given a DuoNeb and steroids after which she was feeling much better and requested discharge. Departure - Departure Disposition: Home, Self Care Clinical Impression: Asthma exacerbation Condition: Good Record reviewed to determine appropriate education?: Yes Instructions: Asthma Dc Prescriptions: Albuterol 2.5 mg INH Q4H PRN #30 ml PRN Reason: Wheezing Nebulizer and Compressor [Compressor Nebulizer System] 1 each MC ONCE #1 ea predniSONE [Deltasone] 60 mg PO DAILY 5 Days #15 tablet Comments: Call your doctor to arrange a follow-up appointment, make the next available appointment. In the interim, return anytime if worse or if new symptoms develop. Forms: PCP List
[2023-11-22 20:36] VITALS: BP 103/66; O2SAT 97
== END 2023-11-22 20:33 | disposition home or self-care (01) ==
LOC: ED 19:31
DX: J45.901 Unspecified asthma with (acute) exacerbation (principal)
CPT/HCPCS: 94640; 99284; J7512; Q0162

== ENCOUNTER 2023-12-16 01:06 | Emergency (ER) | payer MEDICAID ==
--- NOTE | 2023-12-16 01:22 | ED Physician Documentation ---
PD HPI DYSPNEA - Stated complaint Stated Complaint: SOA/VOMITING - History obtained from History obtained from: Patient - Additional information Additional information: HPI from patient. Patient c/o dyspnea c/w previous asthma exacerbations; patient has had many previous [facility] ED visits for same, one visit required inpatient stay but has not required ICU. All other [facility] ED visits were T+R from ED. Patient had gradually worsening dyspnea, chest constriction, wheezing, and dry cough over past two days with decreasing effectiveness with her albuterol MDI and budesonide. Fever earlier today, Tmax 101.5 for which she took ibuprofen. Review of Systems Constitutional: reports: Fever Cardiac: denies: Chest pain / pressure, Palpitations Respiratory: reports: Dyspnea, Cough, Wheezing. denies: Hemoptysis GI: reports: Nausea, Vomiting. denies: Abdominal Pain PD PAST MEDICAL HISTORY - Past Medical History Cardiovascular: None Respiratory: Asthma Neuro: None Endocrine/Autoimmune: None GI: None MANAGER INTENSIVE CARE UNIT: None : None HEENT: None Psych: None Musculoskeletal: None Derm: Eczema - Past Surgical History Past Surgical History: No - Present Medications Home Medications: Ambulatory Orders Medication Instructions Recorded Confirmed Albuterol Sulf [Ventolin Hfa 1 - 2 puffs INH Q4HR PRN #1 each 10/03/23 12/16/23 Inhaler] Albuterol 2.5 mg INH Q4H PRN #30 ml 11/22/23 12/16/23 Nebulizer and Compressor 1 each MC ONCE #1 ea 11/22/23 12/16/23 [Compressor Nebulizer System] Albuterol Sulf [Ventolin Hfa 1 - 2 puffs INH Q4HR PRN #1 each 12/16/23 Inhaler] Azithromycin [Zithromax] 250 mg PO DAILY #4 tablet 12/16/23 Budesonide [Pulmicort] 2 ml IH Q4HR PRN 12/16/23 12/16/23 predniSONE [Deltasone] 10 mg PO ONCE #26 tablet 12/16/23 - Allergies Allergies/Adverse Reactions: Allergies Allergy/AdvReac Type Severity Reaction Status Date / Time egg AdvReac Anaphylaxis Verified 12/16/23 01:35 - Social History Does the pt smoke?: No Smoking Status: Never smoker Does the pt drink ETOH?: No Does the pt have substance abuse?: No - Immunizations Immunizations are current?: No - POLST Patient has POLST: No PD ED PE NORMAL - Vitals Vital signs reviewed: Yes - General General: Alert and oriented X 3, Well developed/nourished, Other (mild-moderate respiratory distress with tachypnea and speaking in parsed (1-2 word) sentences, leaning forward/tripoding, using accessory muscles) - HEENT HEENT: Other (tacky mucous membranes) - Neck Neck: Supple, no meningeal sign - Abdomen Abdomen: Soft, Non tender PD ED PE EXPANDED - Cardiac Cardiac: Tachy, Regular Rhythm - Respiratory Respiratory: Distress, Accessory mm use, Wheezing, Decreased breath sounds Results - Vitals Vitals: Vital Signs - 24 hr 12/16/23 12/16/23 12/16/23 01:12 01:35 02:00 Temperature 36.7 C Heart Rate 109 H 111 H 100 Respiratory 29 H 22 24 Rate Blood Pressure 126/76 O2 Saturation 95 12/16/23 12/16/23 12/16/23 02:03 02:30 02:44 Temperature 37.3 C Heart Rate 111 H 115 H 105 H Respiratory 29 H 20 14 Rate Blood Pressure 131/89 H 120/74 120/74 O2 Saturation 96 95 95 12/16/23 12/16/23 12/16/23 02:48 03:18 03:55 Temperature 36.8 C Heart Rate 100 104 H 90 Respiratory 23 23 20 Rate Blood Pressure 115/77 135/78 H 116/74 O2 Saturation 97 95 97 Oxygen O2 Source Room air - Labs Labs: Laboratory Tests 12/16/23 12/16/23 12/16/23 01:39 01:39 01:51 WBC 10.3 RBC 4.79 Hgb 13.9 Hct 41.4 MCV 86.4 MCH 29.0 MCHC 33.6 RDW 12.0 Plt Count 184 MPV 9.7 Neut # (Auto) 7.4 H Lymph # (Auto) 1.6 Cassia # (Auto) 1.1 H Eos # (Auto) 0.1 Baso # (Auto) 0.1 Absolute Nucleated RBC 0.00 Nucleated RBC % 0.0 Sodium 141 Potassium 3.3 L Chloride 107 Carbon Dioxide 24 Anion Gap 10.0 BUN 8 Creatinine 0.6 Estimated GFR (MDRD) 126 Glucose 118 H Calcium 9.4 Nasal Adenovirus (PCR) NOT DETECTED Nasal B. parapertussis DNA (PCR) NOT DETECTED Nasal Coronavir 229E PCR NOT DETECTED Nasal Coronavir HKU1 PCR NOT DETECTED Nasal Coronavir NL63 PCR NOT DETECTED Nasal Coronavir OC43 PCR DETECTED A Nasal Enterovir/Rhinovir PCR DETECTED A Nasal Influenza B PCR NOT DETECTED Nasal Influenza A PCR NOT DETECTED Nasal Parainfluen 1 PCR NOT DETECTED Nasal Parainfluen 2 PCR NOT DETECTED Nasal Parainfluen 3 PCR NOT DETECTED Nasal Parainfluen 4 PCR NOT DETECTED Nasal RSV (PCR) NOT DETECTED Nasal B.pertussis DNA PCR NOT DETECTED Nasal C.pneumoniae (PCR) NOT DETECTED Joe Human Metapneumo PCR NOT DETECTED Nasal M.pneumoniae (PCR) NOT DETECTED Nasal SARS-CoV-2 (PCR) NOT DETECTED - Rads (name of study) chest xray Relevant Findings:: Prelim report reviewed, See rad report PD Medical Decision Making - ED course Complexity details: reviewed results, re-evaluated patient, considered differential, d/w patient ED course: Moderate respiratory distress with wheezing and significantly diminished breath sounds throughout. She is given duoneb followed by albuterol neb. She is also given 125mg IV solu-medrol, 2grams magnesium sulfate IV, 1 liter NS IV. Unremarkable CBC, BMP. These measures resulted in gradual but steady improvement in symptoms, both by patient report and observation. Her respiratory distress gradually and completely resolved. Reevaluated several times during ED stay and on final reevaluation prior to d/c, she is awake, alert, and in NAD, speaking in full sentences, smiling and with lungs CTA bilaterally. There is a questionable left basilar infiltrate on CXR. Her respiratory PCR panel is positive for enterovirus/rhinovirus as well as coronavirus OC43. Given the severity of her asthma exacerbations (both in general (based on previous ED MD notes) and tonight's exacerbation), it would be prudent to cover possible bacterial pneumonia with antibiotic rather than presume viral pneumonia and risk patient returning with worsening symptoms due to a secondary bacterial infection. She is thus given first dose of zithromax in ED and e-prescribed four more days for 5- day course. I am also prescribing 10-day prednisone taper and an albuterol MDI. Results were d/w patient and return precautions reviewed. Departure - Departure Disposition: 01 Home, Self Care Clinical Impression: Pneumonia Qualifiers: Pneumonia type: due to unspecified organism Laterality: left Lung location: lower lobe of lung Qualified Code(s): J18.9 - Pneumonia, unspecified organism Acute asthma exacerbation Qualifiers: Asthma severity: moderate Asthma persistence: unspecified Qualified Code(s): J45.901 - Unspecified asthma with (acute) exacerbation Condition: Good Instructions: ED Pneumonia Adult Prescriptions: Albuterol Sulf [Ventolin Hfa Inhaler] 1 - 2 puffs INH Q4HR PRN #1 each PRN Reason: Shortness Of Air/Wheezing predniSONE [Deltasone] 10 mg PO ONCE #26 tablet Azithromycin [Zithromax] 250 mg PO DAILY #4 tablet Comments: You tested positive for two viruses tonight: coronavirus OC43 as well as rhinovirus. These are both considered examples of "common cold" viruses. Coronavirus OC43 is NOT COVID. Fortunately, both of these viruses tend to cause mild symptoms. There is no targeted anti-viral treatment for either of these viruses. As we discussed, the chest x-ray does have findings suggestive of the very early stages of pneumonia in your left lower lung. While this is likely due to one or both of these viruses, it is possible that a bacteria is causing your pneumonia while your body is fighting off the viral infections. Considering how severe your asthma exacerbations have been, I am prescribing an antibiotic to cover possible bacterial pneumonia rather than wait and see if you get better without an antibiotic. You were given the first dose of azithromycin in the ER and I have electronically submitted a prescription for another 4 days of this medication to the [facility] pharmacy in [place]. I have also electronically submitted prescriptions for an albuterol inhaler as well as a 10-day tapering course of a steroid (prednisone). Forms: PCP List, Activity restrictions Discharge Date/Time: 12/16/23 03:58
[2023-12-16] MEDS ORDERED: SODIUM CHLORIDE 0.9% 1,000 ML IV STA (01:25)
[2023-12-16] MEDS ORDERED: IPRATROPIUM/ALBUTEROL 3 ML NEB INH STA (01:25)
[2023-12-16] MEDS ORDERED: methylPREDNISolone SUCCINATE 125 MG/2 ML VIAL IVP STA (01:27)
[2023-12-16] MEDS ORDERED: MAGNESIUM SULFATE 2 GRAM 2 GM/50 ML BAG IV ONE (01:28)
[2023-12-16 01:42] LABS: BASOPHILS # (AUTO) 0.1 10^3/uL (0.0-0.1); BASOPHILS % (AUTO) 0.5 %; EOSINOPHILS # (AUTO) 0.1 10^3/uL (0.0-0.7); EOSINOPHILS % (AUTO) 1.3 %; HCT - HEMATOCRIT 41.4 % (37.0-47.0); HGB - HEMOGLOBIN 13.9 g/dL (12.0-16.0); LYMPHOCYTES # (AUTO) 1.6 10^3/uL (1.5-3.5); LYMPHOCYTES % (AUTO) 15.5 %; MEAN CORPUSCULAR HGB CONC 33.6 g/dL (32.0-36.0); MEAN CORPUSCULAR VOLUME 86.4 fL (81.0-99.0); MEAN PLATELET VOLUME 9.7 fL (7.9-10.8); MONOCYTES # (AUTO) 1.1 10^3/uL (0.0-1.0); MONOCYTES % (AUTO) 10.4 %; NEUTROPHILS # (AUTO) 7.4 10^3/uL (1.5-6.6); NEUTROPHILS % (AUTO) 72.1 %; PLT - PLATELET COUNT 184 10^3/uL (130-450); RED BLOOD COUNT 4.79 10^6/uL (4.20-5.40); WHITE BLOOD COUNT 10.3 x10^3/uL (4.8-10.8)
[2023-12-16] MEDS ORDERED: ALBUTEROL NEB 2.5 MG/3 ML INH STA (01:52)
[2023-12-16 02:16] LABS: CALCIUM 9.4 mg/dL (8.5-10.3); CREATININE 0.6 mg/dL (0.6-1.3); POTASSIUM 3.3 mmol/L (3.5-4.5)
[2023-12-16 03:07] LABS: B. PARAPERTUSSIS- RESP PCR PAN NOT DETECTED; B. PERTUSSIS- RESP PCR PANEL NOT DETECTED; C. PNEUMONIAE- RESP PCR PANEL NOT DETECTED; CORONAVIRUS 229E-RESP PCR NOT DETECTED; CORONAVIRUS HKU1-RESP PCR NOT DETECTED; CORONAVIRUS NL63-RESP PCR NOT DETECTED; CORONAVIRUS OC43-RESP PCR DETECTED; HUMAN METAPNEUMOVIRUS NOT DETECTED; INFLUENZA A- RESP PCR PANEL NOT DETECTED; INFLUENZA B - RESP PCR PANEL NOT DETECTED; M. PNEUMONIAE- RESP PCR PANEL NOT DETECTED; PARAINFLUENZA VIRUS 1 NOT DETECTED; PARAINFLUENZA VIRUS 2 NOT DETECTED; PARAINFLUENZA VIRUS 3 NOT DETECTED; PARAINFLUENZA VIRUS 4 NOT DETECTED; RHINOVIRUS/ENTEROVIRUS DETECTED; RSV- RESP PCR PANEL NOT DETECTED; SARS-CoV-2 -RESP PCR PANEL NOT DETECTED
[2023-12-16] MEDS ORDERED: AZITHROMYCIN 250 MG TABLET PO STA (03:43)
[2023-12-16 04:03] VITALS: BP 116/74; O2SAT 97
--- NOTE | 2023-12-16 08:25 | XRAY Report ---
PROCEDURE: Chest 1V INDICATIONS: dyspnea, wheezing TECHNIQUE: One view of the chest was acquired. COMPARISON: Chest x-ray 08/23/2023 FINDINGS: Surgical changes and devices: None. Lungs and pleura: No pleural effusions or pneumothorax. Slight asymmetric opacity within the left ba se.. Lungs are hyperexpanded. Mediastinum: Mediastinal contours appear normal. Heart size is normal. Bones and chest wall: No suspicious bony lesions. Overlying soft tissues appear unremarkable. IMPRESSION: Slight asymmetric appearance within the left base suspicious for developing pneumonia. The above findings are concordant with preliminary report. Reviewed by: Rufina Salmeron MD on 12/16/2023 8:24 AM PST Approved by: Rufina Salmeron MD on 12/16/2023 8:24 AM PST Station ID: [id number]
== END 2023-12-16 03:58 | disposition home or self-care (01) ==
LOC: ED 01:06
DX: J18.9 Pneumonia, unspecified organism (principal); B34.8 Other viral infections of unspecified site; B34.2 Coronavirus infection, unspecified; J45.901 Unspecified asthma with (acute) exacerbation
CPT/HCPCS: 36415; 71045; 80048; 85025; 87633; 94640; 96365; 96375; 99284; A9270